=== PATIENT | male | born 1960 ===

== ENCOUNTER 2016-09-10 15:20 | Emergency (ER) | payer OTHER ==
[2016-09-10 15:47] VITALS: BMI 24.0
[2016-09-10] MEDS ORDERED: Sodium Chloride 0.9% 1,000 ML IV STA ×2 (15:52→17:44)
[2016-09-10 16:22] LABS: VENOUS BLOOD GAS BASE EXCESS 2.8 mmol/L (0.0-2.0); VENOUS BLOOD GAS PCO2 47 mmHg (40-60); VENOUS BLOOD GAS PO2 32 mm/Hg (30-55); VENOUS BLOOD PH 7.39 (7.32-7.43)
[2016-09-10 16:24] LABS: BASO % 0.7 % (0.0-2.0); EOS # 0.1 K/uL (0.0-0.7); EOS % 2.1 % (0.0-4.0); HEMOGLOBIN 14.9 g/dL (12.0-18.0); LYMPH # 1.7 K/uL (1.0-4.3); LYMPH % 27.4 % (20.0-40.0); MEAN CELL VOLUME 85.2 fl (80.0-94.0); MEAN CORPUSCULAR HEMOGLOBIN 28.7 pg (27.0-31.0); MEAN CORPUSCULAR HGB CONC 33.7 g/dL (33.0-37.0); MEAN PLATELET VOLUME 11.1 fl (7.2-11.7); MONO # 0.4 K/uL (0.0-0.8); MONO % 6.9 % (0.0-10.0); NEUT # 3.8 K/uL (1.8-7.0); NEUT % 62.9 % (50.0-75.0); NRBC % 0.1 % (0.0-0.0); RBC 5.18 Mil/uL (4.40-5.90); RED CELL DISTRIBUTION WIDTH 13.5 % (11.5-14.5); WHITE BLOOD COUNT 6.1 K/uL (4.8-10.8)
--- NOTE | 2016-09-10 16:30 | ED PDOC ---
HPI: Male Pain Time Seen by Provider: 09/10/16 15:43 Chief Complaint (Nursing): Abnormal Skin Integrity Chief Complaint (Provider): Penile Lesion History Per: Patient History/Exam Limitations: no limitations Onset/Duration Of Symptoms: Days (x 1 month) Current Symptoms Are (Timing): Still Present Additional Complaint(s): Taiwo Parish is a 56-year-old male who presents to the emergency department after being sent by his primary care physician for a complaint of a penile lesion, ongoing x 1 month. Patient reports scratching the lesion, causing it to increase in size and worsen. While visiting his primary care physician earlier today (09/10/16), he had an AccuCheck revealing hyperglycemia as he did not take his Metformin this morning. Also in the office he was given an injection of penicillin. Patient denies fever, shortness of breath, chest pain, abdominal pain, vomiting, diarrhea, penile pain, dysuria, and difficulty urinating. PMD: Vinny Mitchell MD Past Medical History Reviewed: Historical Data, Nursing Documentation, Vital Signs Vital Signs: Last Vital Signs Temp 98.2 F 09/10/16 15:52 Pulse 81 09/10/16 15:52 Resp 20 09/10/16 15:52 BP 140/80 09/10/16 15:52 Pulse Ox 98 09/10/16 15:52 - Medical History PMH: Depression, Gall Bladder Disease (CHOLECYSTECTOM Y 2013), HTN, Hypercholesterolemia, Sleep Apnea (C PAP) Denies: Chronic Kidney Disease - Surgical History Surgical History: Cholecystectomy, Endoscopy - Family History Family History: States: Unknown Family Hx - Social History Current smoker - smoking cessation education provided: No Alcohol: Social Drugs: Denies - Home Medications Home Medications: Ambulatory Orders Medication Instructions Recorded Aspirin 81 mg PO DAILY 05/28/14 Ropinirole Hydrochloride 0.5 mg PO HS 05/28/14 Simvastatin 80 mg PO DAILY 05/28/14 Atorvastatin [Lipitor] 80 mg PO DAILY 09/10/16 Gabapentin [Neurontin] 600 mg PO HS 09/10/16 Lisinopril [Zestril] 20 mg PO DAILY 09/10/16 Magnesium Oxide [Mag-Ox] 400 mg PO DAILY 09/10/16 MetFORMIN [glucOPHAGE] 1,000 mg PO BID 09/10/16 Metoprolol Succinate [Toprol XL] 25 mg PO DAILY 09/10/16 Rivastigmine 4.6 mg/24 hr [Exelon 1 patch TD DAILY 09/10/16 4.6 mg/24 hr Patch] Sulfamethoxazole/Trimethoprim 1 tab PO BID #20 tab 09/10/16 [Bactrim DS 800 mg-160 mg] amLODIPine [Norvasc] 10 mg PO DAILY 09/10/16 - Allergies Allergies/Adverse Reactions: Allergies Allergy/AdvReac Type Severity Reaction Status Date / Time No Known Allergies Allergy Unverified 08/24/13 13:46 Review of Systems ROS Statement: Except As Marked, All Systems Reviewed And Found Negative Constitutional: Negative for: Fever Cardiovascular: Negative for: Chest Pain Respiratory: Negative for: Shortness of Breath Gastrointestinal: Negative for: Vomiting, Abdominal Pain, Diarrhea Genitourinary Male: Positive for: Other (Penile lesion). Negative for: Dysuria (and difficulty urinating), Penile Pain Physical Exam - Reviewed Nursing Documentation Reviewed: Yes Vital Signs Reviewed: Yes - Physical Exam Appears: Positive for: Non-toxic, No Acute Distress Head Exam: Positive for: ATRAUMATIC, NORMAL INSPECTION, NORMOCEPHALIC Skin: Positive for: Normal Color, Warm, Dry Eye Exam: Positive for: EOMI, Normal appearance, PERRL Neck: Positive for: Normal, Painless ROM, Supple Cardiovascular/Chest: Positive for: Regular Rate, Rhythm. Negative for: Murmur Respiratory: Positive for: Normal Breath Sounds. 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 Uncircumcised and retracted, easily retractable. Edematous with superficial ulceration to the shaft. no tenderness, or vesicles noted. ). Negative for: scrotum tenderness (R), scrotum tenderness (L), testicular tenderness (R), testicular tenderness (L), urethral discharge Neurologic/Psych: Positive for: Alert, Oriented - Laboratory Results Result Diagrams: 09/10/16 16:16 09/10/16 16:16 - ECG O2 Sat by Pulse Oximetry: 98 (RA) Pulse Ox Interpretation: Normal - Physician Consult Information Time Consulting Physican Contacted: 17:10 Physician Contacted: Kenny Burton Outcome Of Conversation: Recommends Bactrim bid, outpatient follow-up in his office on 09/13 @ 3 PM in [place] office. Medical Decision Making Medical Decision Making: Time: 15:51 Initial impression: Balantophimosis, Hyperglycemia Initial plan: --Attempted to get a Urology consult, but the earliest available is Saturday --CMP --VBG shock panel --Urine dipstick --CBC --PTT --Prothrombin Time --Sodium chloride 1000 mL IV at 1000 mL/hr --Blood culture --Urine culture --Urinalysis --Reevaluation Case discussed with Dr. Mitchell, pt was administered Rocephin 250 mg IM in office, requesting consult with Dr. Burton. Scribe Attestation: Documented by Lulu Montalvo, acting as a scribe for Tabitha Cook MD. Provider Scribe Attestation: All medical record entries made by the Scribe were at my direction and personally dictated by me. I have reviewed the chart and agree that the record accurately reflects my personal performance of the history, physical exam, medical decision making, and the department course for this patient. I have also personally directed, reviewed, and agree with the discharge instructions and disposition. Disposition - Clinical Impression Clinical Impression: Balanoposthitis, Penile lesion - Disposition Referrals: Kenny Burton MD [Medical Doctor] - Disposition: Routine/Home Disposition Time: 18:50 Condition: STABLE Prescriptions: Sulfamethoxazole/Trimethoprim [Bactrim DS 800 mg-160 mg] 1 tab PO BID #20 tab Instructions: Jennifer (ED)
[2016-09-10 16:40] LABS: ALB/GLOB RATIO 1.3 (1.0-2.1); ALBUMIN 4.7 g/dL (3.5-5.0); ALT/SGPT 35 U/L (21-72); AST/SGOT 22 U/L (17-59); BLOOD UREA NITROGEN 14 mg/dl (9-20); CALCIUM 9.8 mg/dL (8.4-10.2); GFR AFRICAN-AMERICAN > 60; GFR NON-AFRICAN AMERICAN > 60
[2016-09-10 16:51] LABS: PARTIAL THROMBOPLASTIN TIME 30.1 Seconds (25.6-37.1); PROTHROMBIN TIME 10.8 Seconds (9.8-13.1)
[2016-09-10 16:58] LABS: URINE BACTERIA RARE (<OCC); URINE BILIRUBIN NEGATIVE (NEGATIVE); URINE BLOOD NEGATIVE (NEGATIVE); URINE CLARITY CLEAR (Clear); URINE COLOR YELLOW (YELLOW); URINE GLUCOSE (UA) >=500 mg/dL (Normal); URINE LEUKOCYTE ESTERASE NEG Leu/uL (Negative); URINE NITRATE NEGATIVE (NEGATIVE); URINE PROTEIN 30 mg/dL (NEGATIVE); URINE UROBILINOGEN 0.2-1.0 mg/dL (0.2-1.0)
[2016-09-10] MEDS ORDERED: Insulin Regular 100 units/ml IV STA (17:44)
[2016-09-10 17:45] VITALS: PULSE 78
[2016-09-10] MEDS ORDERED: Insulin Regular 100 units/ml ONE (17:49)
[2016-09-10 18:57] VITALS: BP 128/78; RESP 19; TEMP 97.6; O2SAT 98
== END 2016-09-10 18:56 | disposition home or self-care (01) ==
LOC: H.ER 15:20
DX: N47.6 Balanoposthitis (principal); E78.00 Pure hypercholesterolemia, unspecified; Z79.82 Long term (current) use of aspirin; Z79.84 Long term (current) use of oral hypoglycemic drugs; Z86.59 Personal history of other mental and behavioral disorders

== ENCOUNTER 2017-10-04 18:40 | Inpatient (IN) | payer OTHER ==
[2017-10-04 18:40] VITALS: BMI 24.0
[2017-10-04] MEDS ORDERED: Sodium Chloride 0.9% 1,000 ML IV STA ×2 (19:26→20:55)
--- NOTE | 2017-10-04 19:30 | ED PDOC ---
Syncope/Near Syncope/Dizziness Time Seen by Provider: 10/04/17 19:09 Chief Complaint (Nursing): Dizziness/Lightheaded Chief Complaint (Provider): Abdominal Pain History Per: Patient History/Exam Limitations: no limitations Onset/Duration Of Symptoms: Days (x7) Current Symptoms Are (Timing): Still Present Additional Complaint(s): 57 y/o male with a PMHx of HTM, DM, and CAD presents to the ED complaining of fever, diarrhea and abdominal pain, onset one week ago. Patient reports pain started with continuous, water, non-bloody diarrhea and cramping. Patient also complains of on and off fever starting three days ago associated with generalized weakness, fatigue and dizziness when walking. Patient reports of taking augmentin for tooth infection last week. Denies headache, chest pain, rectal bleeding, urinary problems, travel and sick contacts. PMD: Vinny Mitchell Past Medical History Reviewed: Historical Data, Nursing Documentation, Vital Signs Vital Signs: Last Vital Signs Temp 98.1 F 10/04/17 18:48 Pulse 105 H 10/04/17 18:48 Resp 18 10/04/17 18:48 BP 111/76 10/04/17 18:48 Pulse Ox 99 10/04/17 18:48 - Medical History PMH: CAD, Depression, Diabetes, Gall Bladder Disease (CHOLECYSTECTOM Y 2013), HTN, Hypercholesterolemia, Sleep Apnea (C PAP) Denies: Chronic Kidney Disease - Surgical History Surgical History: CABG, Cholecystectomy, Endoscopy - Family History Family History: States: Unknown Family Hx - Home Medications Home Medications: Ambulatory Orders Medication Instructions Recorded Aspirin 81 mg PO DAILY 05/28/14 Ropinirole Hydrochloride 0.5 mg PO HS 05/28/14 Simvastatin 80 mg PO DAILY 05/28/14 Lisinopril [Zestril] 20 mg PO DAILY 09/10/16 MetFORMIN [glucOPHAGE] 1,000 mg PO BID 09/10/16 Metoprolol Succinate XL [Toprol XL] 25 mg PO DAILY 09/10/16 Rivastigmine 4.6 mg/24 hr [Exelon 1 patch TD DAILY 09/10/16 4.6 mg/24 hr Patch] amLODIPine [Norvasc] 10 mg PO DAILY 09/10/16 - Allergies Allergies/Adverse Reactions: Allergies Allergy/AdvReac Type Severity Reaction Status Date / Time No Known Allergies Allergy Verified 10/04/17 18:48 Review of Systems ROS Statement: Except As Marked, All Systems Reviewed And Found Negative Constitutional: Positive for: Fever, Weakness, Other (Fatigue) Cardiovascular: Negative for: Chest Pain Gastrointestinal: Positive for: Abdominal Pain, Diarrhea. Negative for: Vomiting, Rectal Pain Genitourinary Male: Negative for: Dysuria, Frequency, Hematuria Neurological: Positive for: Dizziness (When walking). Negative for: Headache Physical Exam - Reviewed Nursing Documentation Reviewed: Yes Vital Signs Reviewed: Yes - Physical Exam Appears: Positive for: Non-toxic, No Acute Distress Head Exam: Positive for: ATRAUMATIC, NORMOCEPHALIC Skin: Positive for: Normal Color, Warm, Dry Eye Exam: Positive for: Normal appearance, EOMI, PERRL ENT: Positive for: Normal ENT Inspection, Other (Dry Mucous Membranes) Neck: Positive for: Normal, Painless ROM Cardiovascular/Chest: Positive for: Regular Rate, Rhythm, Tachycardia. Negative for: Murmur Respiratory: Positive for: Normal Breath Sounds. Negative for: Respiratory Distress Gastrointestinal/Abdominal: Positive for: Normal Exam, Soft. Negative for: Tenderness Back: Positive for: Normal Inspection. Negative for: L CVA Tenderness, R CVA Tenderness Extremity: Positive for: Normal ROM. Negative for: Deformity, Swelling (leg) Neurologic/Psych: Positive for: Alert, Oriented. Negative for: Motor/Sensory Deficits - Laboratory Results Result Diagrams: 10/04/17 20:00 10/04/17 20:00 - ECG O2 Sat by Pulse Oximetry: 99 (RA) Pulse Ox Interpretation: Normal - Critical Care Total Time (In Min): 120 Documented Critical Care: Time excludes all time spent performint seperately billable procedures Medical Decision Making Medical Decision Making: Time: 1926 Initial Impression: Fever, diarrhea and abdominal pain Differentials include but not limited to Acute Colitis, Gastroenteritis, Diverticulitis and other abdominal infection considered but not listed. Initial Plan: -- VBG -- CT Abd/Pelvis IV Contrast -- EKG -- CMP -- Lipase -- ED Urine Dipstick -- CBC with differentials -- Sodium Chloride IV 1000 mls/hr -- Zofran Inj 4 mg IV -- Blood Culture -- Urine Culture Time: 2008 Plan: -- VBG Time: 2027 Plan: -- ABG Time: 2129 Final Impression: Acute Colitis, Sepsis, Septic Shock and C.Diff -- Glucose level and Lact Acid level results are very elevated. -- Code Sepsis called -- Patient developed fever and met criteria for SARS. Thus a Code Sepsis was called. Provider order IV fluids according to protocol. -- Discussed case with Dr. Tucker to admit to ICU for septic shock. Then called Dr. Mitchell for admission under his service who requested Dr. Tena for consultation. Time: 2134 -- Patient given Zosyn and and Flagyl as per Dr. Tena's recommendation. Time: 2145 CT ABD/PELVIS RESULTS FINDINGS: Lung bases: Unremarkable. No mass. No consolidation. ABDOMEN: Liver: 1.5 cm hyperdense focus in the hepatic dome cannot be accurately placed within them this exam. Gallbladder and bile ducts: Cholecystectomy No ductal dilation. Pancreas: Unremarkable. No ductal dilation. Spleen: Unremarkable. No splenomegaly. Adrenals: Unremarkable. No mass. Kidneys and ureters: Unremarkable. No solid mass. No hydronephrosis. Stomach and bowel: Apparent thickening of the entire colon, indicative of infectious/inflammatory colitis versus less likely ischemic colitis. Correlate clinically. PELVIS: Appendix: No findings to suggest acute appendicitis. Bladder: Unremarkable. Reproductive: Enlarged prostate. ABDOMEN and PELVIS: Intraperitoneal space: Unremarkable. No free air. No significant fluid collection. Bones/joints: No acute fracture. No dislocation. Soft tissues: Unremarkable. Vasculature: Unremarkable. No abdominal aortic aneurysm. Lymph nodes: Unremarkable. No enlarged lymph nodes. IMPRESSION: Apparent thickening of the entire colon, indicative of infectious/inflammatory colitis versus less likely ischemic colitis. Correlate clinically. Thank you for allowing us to participate in the care of your patient. Dictated and Authenticated by: Azul Beard MD 10/04/2017 9:46 PM Eastern Time ([place] & [place]) Scribe Attestation: Documented by Al Tejada acting as a scribe for Dr. Norma Chávez MD. Provider Scribe Attestation: All medical record entries made by the Scribe were at my direction and personally dictated by me. I have reviewed the chart and agree that the record accurately reflects my personal performance of the history, physical exam, medical decision making, and the department course for this patient. I have also personally directed, reviewed, and agree with the discharge instructions and disposition. Disposition - Clinical Impression Clinical Impression: Sepsis, Colitis, Septic shock, Hyperglycemia due to type 2 diabetes mellitus - Patient ED Disposition Is Patient to be Admitted: Yes Discussed With : Vinny Mitchell Doctor Will See Patient In The: Hospital Counseled Patient/Family Regarding: Studies Performed, Diagnosis - Disposition Disposition Time: 21:30 Condition: CRITICAL - Pt Status Changed To: Hospital Disposition Of: Inpatient - Admit Certification Admit to Inpatient:: After my assessment, the patient will require hospitalization for at least two midnights. This is because of the severity of symptoms shown, intensity of services needed, and/or the medical risk in this patient being treated as an outpatient. - POA Present On Arrival: Poor Glycemic Control
[2017-10-04 20:16] LABS: BASO % 0.1 % (0.0-2.0); HEMOGLOBIN 15.7 g/dL (12.0-18.0); LYMPH # 0.5 K/uL (1.0-4.3); LYMPH % 6.3 % (20.0-40.0); MEAN CELL VOLUME 85.7 fl (80.0-94.0); MEAN CORPUSCULAR HEMOGLOBIN 29.1 pg (27.0-31.0); MEAN CORPUSCULAR HGB CONC 33.9 g/dL (33.0-37.0); MEAN PLATELET VOLUME 11.2 fl (7.2-11.7); MONO # 0.6 K/uL (0.0-0.8); MONO % 7.9 % (0.0-10.0); NEUT # 6.6 K/uL (1.8-7.0); NEUT % 85.7 % (50.0-75.0); PLATELET COUNT 175 K/uL (130-400); RED CELL DISTRIBUTION WIDTH 13.9 % (11.5-14.5); WHITE BLOOD COUNT 7.7 K/uL (4.8-10.8)
[2017-10-04 20:18] LABS: VENOUS BLOOD GAS BASE EXCESS -3.1 mmol/L (0.0-2.0); VENOUS BLOOD GAS PCO2 35 mmHg (40-60); VENOUS BLOOD GAS PO2 32 mm/Hg (30-55); VENOUS BLOOD PH 7.39 (7.32-7.43)
[2017-10-04 20:35] LABS: ALB/GLOB RATIO 1.5 (1.0-2.1); ALBUMIN 4.3 g/dL (3.5-5.0); ALT/SGPT 32 U/L (21-72); AST/SGOT 31 U/L (17-59); BLOOD UREA NITROGEN 23 mg/dl (9-20); CALCIUM 9.5 mg/dL (8.4-10.2); GFR AFRICAN-AMERICAN > 60; GFR NON-AFRICAN AMERICAN 52; LIPASE 31 U/L (23-300)
[2017-10-04] MEDS ORDERED: Iohexol 300 100 ML IJ ONE (20:37)
[2017-10-04 20:40] LABS: ABG ALLEN TEST YES; ARTERIAL BLOOD GAS HCO3 21.3 mmol/L (21-28); ARTERIAL BLOOD GAS HEMOGLOBIN 14.1 g/dL (11.7-17.4); ARTERIAL BLOOD GAS O2 CAPACITY 18.8 mL/dL (16-24); ARTERIAL BLOOD GAS PCO2 30 mm/Hg (35-45); ARTERIAL BLOOD GAS PH 7.41 (7.35-7.45); ARTERIAL BLOOD GAS PO2 62 mm/Hg (80-100); ARTERIAL BLOOD GAS TCO2 19.9 mmol/L (22-28)
[2017-10-04] MEDS ORDERED: Iodixanol 320 MG/ML 100 ML BOTTLE IV ONE (20:48)
[2017-10-04] MEDS ORDERED: Insulin Regular 100 units/ml IV STA (20:54)
[2017-10-04] MEDS ORDERED: Piperacillin/Tazobact 3.375 GM in Sodium Chloride 0.9% 100 ML IVPB STA (21:35)
[2017-10-04] MEDS ORDERED: Insulin Regular 100 units/ml ONE (21:36)
[2017-10-04 22:00] LABS: BANDS 8 % (0-2); LYMPHOCYTE 10 % (20-50); MONOCYTE 8 % (0-10); NEUTROPHIL 74 % (42-75); PLATELET ESTIMATE NORMAL (NORMAL); TOTAL CELLS COUNTED 100
[2017-10-04 22:01] LABS: HYPOCHROMIC SLIGHT; MICROCYTOSIS SLIGHT
--- NOTE | 2017-10-04 22:02 | CP.PCM.CON ---
History of Present Illness - History of Present Illness History of Present Illness: PMD: Vinny Mitchell Reason for Consult: Critical Care Management Chief Complaint: Fever/diarrhea/abdominal pain The Patient was seen and examined in the ED HPI: The hx was obtained from the patient and his family. He is a 57 years old male with hx of HTN, DM II, and restless leg syndrome who 3 weeks ago was given Amoxicillin for abdominal pains. He was then given Augmentin about 10 days ago as prophylaxis for tooth extraction which was done on the 10/02/17. He comes to the ED with one week of loose diarrhea with blood associated with cramping geraldine- umbilical abdominal pains and lightheadedness on being erect. Also generalized weakness. The fever started 3 days prior to this admission. No headaches, chest pains dysuria. 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 absent: Blurred Vision, Diplopia, Photophobia Ears: absent: Decreased Hearing, Tinnitus Nose/Mouth/Throat: absent: Epistaxis, Nasal Congestion, Sinus Pain, Sinus Pressure - Cardiovascular Cardiovascular: absent: Chest Pain, Dyspnea, Edema - Respiratory Respiratory: absent: Cough, Dyspnea, Wheezing, Chest Congestion - Gastrointestinal Gastrointestinal: Abdominal Pain, Cramping, Diarrhea, Hematochezia. absent: Nausea, Vomiting - Genitourinary Genitourinary: absent: Dysuria, Flank Pain, Urinary Frequency - Musculoskeletal Musculoskeletal: Arthralgias. absent: Back Pain, Muscle Cramps - Integumentary Integumentary: absent: Pruritus, Rash, Skin Ulcer, Sores, Striae, Swelling - Neurological Neurological: Dizziness, Restless Legs, Weakness. absent: Confusion, Focal Weakness - Psychiatric Psychiatric: Depression. absent: Anxiety, Panic Attacks - Endocrine Endocrine: absent: Palpitations, Polydipsia, Polyphagia, Polyuria - Hematologic/Lymphatic Hematologic: absent: Easy Bleeding, Easy Bruising Past Patient History - Past Medical History & Family History Past Medical History?: Yes - Past Social History Smoking Status: Never Smoked Chewing Tobacco Use: No Cigar Use: No Alcohol: Social Drugs: Denies Home Situation {Lives}: With Family - CARDIAC Hx Hypercholesterolemia: Yes Hx Hypertension: Yes - PULMONARY Hx Sleep Apnea: Yes (C PAP) - NEUROLOGICAL Hx Neurological Disorder: Yes Hx Dizziness: Yes (ONLY WHEN GETS UP ABRUPTLY) - HEENT Hx HEENT Problems: No - RENAL Hx Chronic Kidney Disease: No - ENDOCRINE/METABOLIC Hx Endocrine Disorders: Yes Hx Diabetes Mellitus Type 2: Yes - HEMATOLOGICAL/ONCOLOGICAL Hx Blood Disorders: No - INTEGUMENTARY Hx Dermatological Problems: No - MUSCULOSKELETAL/RHEUMATOLOGICAL Hx Musculoskeletal Disorders: Yes Hx Back Pain: Yes Hx Osteoarthritis: Yes (SPINE) Other/Comment: CARPAL TUNNEL left - GASTROINTESTINAL Hx Gall Bladder Disease: Yes (CHOLECYSTECTOM Y 2013) - GENITOURINARY/GYNECOLOGICAL Hx Genitourinary Disorders: No - PSYCHIATRIC Hx Depression: Yes - SURGICAL HISTORY Hx Cholecystectomy: Yes Hx Coronary Artery Bypass Graft: Yes - ANESTHESIA Hx Anesthesia: Yes Hx Anesthesia Reactions: No Hx Malignant Hyperthermia: No Meds Allergies/Adverse Reactions: Allergies Allergy/AdvReac Type Severity Reaction Status Date / Time No Known Allergies Allergy Verified 10/04/17 18:48 - Medications Medications: Current Medications Piperacillin Sod/Tazobactam (Sod 3.375 gm/ Sodium Chloride) 100 mls @ 100 mls/ hr IVPB STAT STA PRN Reason: Protocol Stop: 10/04/17 22:34 Metronidazole (Flagyl 500mg/100ml Ns) 100 mls @ 100 mls/hr IVPB Q8 JOSHUA PRN Reason: Protocol Physical Exam - Constitutional Appears: Toxic - Head Exam Head Exam: ATRAUMATIC, NORMAL INSPECTION, NORMOCEPHALIC - Eye Exam Eye Exam: EOMI, Normal appearance Pupil Exam: NORMAL ACCOMODATION, PERRL - ENT Exam ENT Exam: Mucous Membranes Dry, Normal Exam, Normal External Ear Exam - Neck Exam Neck exam: Positive for: Full Rom, Normal Inspection. Negative for: Lymphadenopathy, Tenderness - Respiratory Exam Respiratory Exam: Clear to Auscultation Bilateral. absent: Rales, Rhonchi, Wheezes - Cardiovascular Exam Cardiovascular Exam: REGULAR RHYTHM, RRR, +S1, +S2. absent: Gallop, JVD - GI/Abdominal Exam Additional comments: Full, Soft, non-tender, no guarding nor rebound tenderness - Rectal Exam Rectal Exam: Deferred - Extremities Exam Extremities exam: Positive for: full ROM, normal inspection. Negative for: calf tenderness, pedal edema - Back Exam Back exam: NORMAL INSPECTION. absent: CVA tenderness (L), CVA tenderness (R) - Neurological Exam Neurological exam: Alert, CN II-XII Intact, Oriented x3, Reflexes Normal - Psychiatric Exam Psychiatric exam: Normal Affect, Normal Mood - Skin Skin Exam: Dry, Intact, Normal Color, Warm Results - Vital Signs Recent Vital Signs: Last Vital Signs Temp 102.1 F H 10/04/17 21:37 Pulse 101 H 10/04/17 21:39 Resp 18 10/04/17 20:33 BP 121/68 10/04/17 21:39 Pulse Ox 99 10/04/17 21:55 - Labs Result Diagrams: 10/04/17 20:00 10/04/17 20:00 Labs: Laboratory Results - last 24 hr 10/04/17 10/04/17 10/04/17 20:00 20:00 20:09 WBC 7.7 RBC 5.40 Hgb 15.7 Hct 46.3 MCV 85.7 MCH 29.1 MCHC 33.9 RDW 13.9 Plt Count 175 MPV 11.2 Neut % (Auto) 85.7 H Lymph % (Auto) 6.3 L [place] % (Auto) 7.9 Eos % (Auto) 0.0 Baso % (Auto) 0.1 Neut # (Auto) 6.6 Lymph # (Auto) 0.5 L [place] # (Auto) 0.6 Eos # (Auto) 0.0 Baso # (Auto) 0.0 Neutrophils % (Manual) 74 Band Neutrophils % 8 H Lymphocytes % (Manual) 10 L Monocytes % (Manual) 8 Platelet Estimate Normal Hypochromasia (manual) Slight Microcytosis (manual) Slight pCO2 pO2 32 HCO3 ABG pH ABG Total CO2 ABG O2 Saturation ABG O2 Content ABG Base Excess ABG Hemoglobin ABG Carboxyhemoglobin POC ABG HHb (Measured) ABG Methemoglobin ABG O2 Capacity Shaquille Test VBG pH 7.39 VBG pCO2 35 L VBG HCO3 21.5 VBG Total CO2 22.3 VBG O2 Sat (Calc) 67.3 H VBG Base Excess -3.1 L VBG Potassium 4.2 A-a O2 Difference Hgb O2 Saturation Glucose 606 H* D Lactate 4.7 H* Vent Mode FiO2 21.0 Crit Value Called To dany Chávez md Crit Value Called By Sage durán Crit Value Read Back Y Blood Gas Notified Time 2017 Sodium 132 130.0 L Potassium 4.4 Chloride 94 L 92.0 L Carbon Dioxide 20 L Anion Gap 22 H BUN 23 H Creatinine 1.4 Est GFR ( Amer) > 60 Est GFR (Non-Af Amer) 52 Random Glucose 567 H* D Calcium 9.5 Total Bilirubin 1.5 H AST 31 ALT 32 Alkaline Phosphatase 107 Total Protein 7.2 Albumin 4.3 Globulin 2.9 Albumin/Globulin Ratio 1.5 Lipase 31 Venous Blood Potassium 4.2 10/04/17 20:28 WBC RBC Hgb Hct MCV MCH MCHC RDW Plt Count MPV Neut % (Auto) Lymph % (Auto) [place] % (Auto) Eos % (Auto) Baso % (Auto) Neut # (Auto) Lymph # (Auto) [place] # (Auto) Eos # (Auto) Baso # (Auto) Neutrophils % (Manual) Band Neutrophils % Lymphocytes % (Manual) Monocytes % (Manual) Platelet Estimate Hypochromasia (manual) Microcytosis (manual) pCO2 30 L pO2 62 L HCO3 21.3 ABG pH 7.41 ABG Total CO2 19.9 L ABG O2 Saturation 96.0 ABG O2 Content 18.0 ABG Base Excess -4.4 L ABG Hemoglobin 14.1 ABG Carboxyhemoglobin 2.7 H POC ABG HHb (Measured) 3.8 ABG Methemoglobin 2.9 ABG O2 Capacity 18.8 Shaquille Test Yes VBG pH VBG pCO2 VBG HCO3 VBG Total CO2 VBG O2 Sat (Calc) VBG Base Excess VBG Potassium A-a O2 Difference 50.0 Hgb O2 Saturation 90.6 L Glucose Lactate Vent Mode Room air FiO2 21.0 Crit Value Called To Crit Value Called By Crit Value Read Back Blood Gas Notified Time Sodium Potassium Chloride Carbon Dioxide Anion Gap BUN Creatinine Est GFR ( Amer) Est GFR (Non-Af Amer) Random Glucose Calcium Total Bilirubin AST ALT Alkaline Phosphatase Total Protein Albumin Globulin Albumin/Globulin Ratio Lipase Venous Blood Potassium - Imaging and Cardiology CT scan - abdomen Status: Report reviewed by me Additional comment: CT Abdomen and Pelvis With Intravenous Contrast CLINICAL HISTORY: FINDINGS: Lung bases: Unremarkable. No mass. No consolidation. ABDOMEN: Liver: 1.5 cm hyperdense focus in the hepatic dome cannot be accurately placed within them this exam. Gallbladder and bile ducts: Cholecystectomy No ductal dilation. Pancreas: Unremarkable. No ductal dilation. Spleen: Unremarkable. No splenomegaly. Adrenals: Unremarkable. No mass. Kidneys and ureters: Unremarkable. No solid mass. No hydronephrosis. Stomach and bowel: Apparent thickening of the entire colon, indicative of infectious/inflammatory colitis versus less likely ischemic colitis. Correlate clinically. PELVIS: Appendix: No findings to suggest acute appendicitis. Bladder: Unremarkable. Reproductive: Enlarged prostate. ABDOMEN and PELVIS: Intraperitoneal space: Unremarkable. No free air. No significant fluid collection. Bones/joints: No acute fracture. No dislocation. Soft tissues: Unremarkable. Vasculature: Unremarkable. No abdominal aortic aneurysm. Lymph nodes: Unremarkable. No enlarged lymph nodes. IMPRESSION: Apparent thickening of the entire colon, indicative of infectious/inflammatory colitis versus less likely ischemic colitis. Correlate clinically. Chest x-ray Status: Image reviewed by me Additional comment: No Infiltrate Assessment & Plan - Assessment and Plan (Free Text) Assessment: #. Acute colitis #. Septic Shock #. Azotemia and Dehydrartion #. DM II with hyperglycemia #. HTN #. Restless leg Syndrome #. Sleep Apnea Plan: 57 years old male with hx of HTN, DM II, and restless leg syndrome who was then given Augmentin about 10 days ago as prophylaxis for tooth extraction which was done on the 10/02/17. He comes to the ED with one week of loose diarrhea with blood associated with cramping geraldine-umbilical abdominal pains, lightheadedness and generalized weakness. Fever started 3 days prior to this admission. #. Acute colitis r/o Ulcerative colitis vs infectious colitis, ischemic colitis less likely - consult Dr Shaw GI - Stool for C Diff - Stool culture - Hemoglobin - Zosyn - Flagyl #. Septic Shock - Consult Dr Tena ID - Blood Cultures - follow Lactate - Antibiotics - IV Fluids 2Liter of NS and 1.8 Liters of Ringers lactate given in ED - continue with IV Fluids NS at 200mls/hr #. Azotemia and Dehydrartion - IV Fluids - Renal labs #. DM II with hyperglycemia - IV fluids - Regular Insulin sliding scale according to accucheck - Metformin - HbAic #. HTN - Restart home mediation of Metoprolol/Norvasc/Zestril with BP parameters - Follow blood pressures #. Sleep Apnea - CPAP #. Stress Ulcer Prophylaxis with Pantoprazole #. DVT Prophylaxis with SCD #. Code Status: Full - Date & Time Date: 10/04/17 Time: 22:02
[2017-10-04] MEDS ORDERED: metroNIDAZOLE 500mg/100ml NS 100 ML IVPB STA (22:07)
[2017-10-04] MEDS ORDERED: metroNIDAZOLE 500mg/100ml NS 100 ML IVPB ONE (22:12)
[2017-10-04] MEDS ORDERED: Piperacillin/Tazobact 3.375 gm Inj IVPB ONE (22:12)
[2017-10-04 23:15] LABS: VENOUS BLOOD GAS BASE EXCESS -3.3 mmol/L (0.0-2.0); VENOUS BLOOD GAS PCO2 36 mmHg (40-60); VENOUS BLOOD GAS PO2 20 mm/Hg (30-55); VENOUS BLOOD PH 7.38 (7.32-7.43)
[2017-10-05] MEDS ORDERED: metroNIDAZOLE 500mg/100ml NS 100 ML IVPB SCH (01:00)
[2017-10-05] MEDS: Insulin Regular 100 units/ml SC SCH ×6 (04:47→20:45)
[2017-10-05] MEDS: Piperacillin/Tazobact 3.375 GM in Sodium Chloride 0.9% 100 ML IVPB SCH ×2 (05:06→10:03)
[2017-10-05] MEDS: Sodium Chloride 0.9% 1,000 ML IV SCH ×4 (05:06→21:25)
[2017-10-05 06:09] LABS: BASO % 0.4 % (0.0-2.0); EOS % 0.1 % (0.0-4.0); HEMOGLOBIN 13.5 g/dL (12.0-18.0); LYMPH # 0.8 K/uL (1.0-4.3); LYMPH % 20.7 % (20.0-40.0); MEAN CELL VOLUME 85.8 fl (80.0-94.0); MEAN CORPUSCULAR HEMOGLOBIN 29.2 pg (27.0-31.0); MEAN PLATELET VOLUME 11.3 fl (7.2-11.7); MONO # 0.5 K/uL (0.0-0.8); NEUT # 2.4 K/uL (1.8-7.0); NEUT % 64.8 % (50.0-75.0); NRBC % 0.1 % (0.0-0.0); RBC 4.61 Mil/uL (4.40-5.90); RED CELL DISTRIBUTION WIDTH 13.4 % (11.5-14.5); WHITE BLOOD COUNT 3.8 K/uL (4.8-10.8)
[2017-10-05 06:30] LABS: BLOOD UREA NITROGEN 17 mg/dl (9-20); CALCIUM 7.9 mg/dL (8.4-10.2); GFR AFRICAN-AMERICAN > 60; GFR NON-AFRICAN AMERICAN > 60
--- NOTE | 2017-10-05 07:03 | RAD ---
Date of service: 10/04/2017 HISTORY: sepsis COMPARISON: No prior. FINDINGS: LUNGS: No active pulmonary disease. PLEURA: No significant pleural effusion identified, no pneumothorax apparent. CARDIOVASCULAR: Normal. OSSEOUS STRUCTURES: No significant abnormalities. VISUALIZED UPPER ABDOMEN: Normal. OTHER FINDINGS: Status post CABG per IMPRESSION: No active disease.
--- NOTE | 2017-10-05 07:52 | CARD ---
APPROVED REPORT Date of service: 10/04/2017 <Conclusion> Sinus tachycardia Incomplete right bundle branch block T wave abnormality, consider inferior ischemia Abnormal ECG
--- NOTE | 2017-10-05 08:49 | CT ---
Date of service: 10/04/2017 PROCEDURE: CT Abdomen and Pelvis without intravenous contrast HISTORY: diarrhea abd pain fever COMPARISON: None. TECHNIQUE: Technique. Contrast dose: Radiation dose: Total exam DLP = mGy-cm. This CT exam was performed using one or more of the following dose reduction techniques: Automated exposure control, adjustment of the mA and/or kV according to patient size, and/or use of iterative reconstruction technique. FINDINGS: LOWER THORAX: Unremarkable. LIVER: Unremarkable. No gross lesion or ductal dilatation. GALLBLADDER AND BILE DUCTS: Unremarkable. PANCREAS: Unremarkable. No gross lesion or ductal dilatation. SPLEEN: Unremarkable. ADRENALS: Unremarkable. No mass. KIDNEYS AND URETERS: Unremarkable. No hydronephrosis. No solid mass. VASCULATURE: Unremarkable. No aortic aneurysm. BOWEL: Thickening of the colon possibly representing an infectious/ inflammatory colitis. This is more pronounced in the descending and sigmoid colon. APPENDIX: Unremarkable. Normal appendix. PERITONEUM: Unremarkable. No free fluid. No free air. LYMPH NODES: Unremarkable. No enlarged lymph nodes. BLADDER: Unremarkable. REPRODUCTIVE: Unremarkable. BONES: No acute fracture. OTHER FINDINGS: None. IMPRESSION: Thickening of the colon possibly representing an infectious/ inflammatory colitis. This is more pronounced in the descending and sigmoid colon.
[2017-10-05] MEDS: Pantoprazole 40 mg EC Tab PO SCH (08:52)
[2017-10-05] MEDS: Metoprolol Succinate 25 mg XL Tab PO SCH (08:53)
[2017-10-05] MEDS: metroNIDAZOLE 500mg/100ml NS 100 ML IVPB SCH ×2 (08:59→17:06)
--- NOTE | 2017-10-05 11:43 | CP.PCM.HP ---
History of Present Illness - History of Present Illness History of Present Illness: 57 y/o gentleman with hx of CAD, DM2, HTN presented in ER with presyncope, severe weakness and severe diarrhea no melena, no hematochezia x 2 days. He presented with severe dehydration, tachycardia, BG >600, persistent fever with Tmax 103.5, leukopenia, increased anion GAP and BUN. He was seen in my office on 08/12 with mild symptoms of gastroenteritis. He was started on PO Cipro and Flagyl. He was advised to have a f/u with a GI. As per the patient he responded well at the therapy at that time so he defend the f/u with GI and colonoscopy. Present on Admission - Present on Admission Any Indicators Present on Admission: No Review of Systems - Constitutional Constitutional: Fatigue, Malaise, Weight Loss, Weakness - EENT Nose/Mouth/Throat: As Per HPI - Cardiovascular Cardiovascular: As Per HPI - Respiratory Respiratory: As Per HPI - Gastrointestinal Gastrointestinal: Cramping, Diarrhea, Dyspepsia - Musculoskeletal Musculoskeletal: As Per HPI - Integumentary Integumentary: As Per HPI - Neurological Neurological: As Per HPI - Psychiatric Psychiatric: As Per HPI Past Patient History - Past Medical History & Family History Past Medical History?: Yes - Past Social History Smoking Status: Never Smoked Chewing Tobacco Use: No Cigar Use: No Alcohol: Social Drugs: Denies Home Situation {Lives}: With Family - CARDIAC Hx Hypercholesterolemia: Yes Hx Hypertension: Yes - PULMONARY Hx Sleep Apnea: Yes (C PAP) - NEUROLOGICAL Hx Neurological Disorder: Yes Hx Dizziness: Yes (ONLY WHEN GETS UP ABRUPTLY) - HEENT Hx HEENT Problems: No - RENAL Hx Chronic Kidney Disease: No - ENDOCRINE/METABOLIC Hx Endocrine Disorders: Yes Hx Diabetes Mellitus Type 2: Yes - HEMATOLOGICAL/ONCOLOGICAL Hx Blood Disorders: No - INTEGUMENTARY Hx Dermatological Problems: No - MUSCULOSKELETAL/RHEUMATOLOGICAL Hx Musculoskeletal Disorders: Yes Hx Back Pain: Yes Hx Osteoarthritis: Yes (SPINE) Other/Comment: CARPAL TUNNEL left - GASTROINTESTINAL Hx Gall Bladder Disease: Yes (CHOLECYSTECTOM Y 2013) - GENITOURINARY/GYNECOLOGICAL Hx Genitourinary Disorders: No - PSYCHIATRIC Hx Depression: Yes - SURGICAL HISTORY Hx Cholecystectomy: Yes Hx Coronary Artery Bypass Graft: Yes - ANESTHESIA Hx Anesthesia: Yes Hx Anesthesia Reactions: No Hx Malignant Hyperthermia: No Meds Allergies/Adverse Reactions: Allergies Allergy/AdvReac Type Severity Reaction Status Date / Time No Known Allergies Allergy Verified 10/04/17 18:48 Physical Exam - Constitutional Appears: Chronically Ill - Head Exam Head Exam: ATRAUMATIC, NORMAL INSPECTION, NORMOCEPHALIC - Eye Exam Eye Exam: Normal appearance - ENT Exam ENT Exam: Mucous Membranes Dry - Neck Exam Neck exam: Positive for: Full Rom - Respiratory Exam Respiratory Exam: Clear to Auscultation Bilateral - Cardiovascular Exam Cardiovascular Exam: Tachycardia, REGULAR RHYTHM, +S1, +S2 - GI/Abdominal Exam GI & Abdominal Exam: Hyperactive Bowel Sounds - Extremities Exam Extremities exam: Positive for: normal inspection - Neurological Exam Neurological exam: Alert, CN II-XII Intact, Oriented x3 - Psychiatric Exam Psychiatric exam: Normal Affect - Skin Skin Exam: Normal Color Results - Vital Signs Recent Vital Signs: Last Vital Signs Temp 102.8 F H 10/05/17 08:00 Pulse 94 H 10/05/17 10:00 Resp 21 10/05/17 10:00 BP 120/64 10/05/17 10:00 Pulse Ox 100 10/05/17 10:00 - Labs Result Diagrams: 10/05/17 04:12 10/05/17 04:12 Labs: Laboratory Results - last 24 hr 10/04/17 10/04/17 10/04/17 20:00 20:00 20:09 WBC 7.7 RBC 5.40 Hgb 15.7 Hct 46.3 MCV 85.7 MCH 29.1 MCHC 33.9 RDW 13.9 Plt Count 175 MPV 11.2 Neut % (Auto) 85.7 H Lymph % (Auto) 6.3 L [place] % (Auto) 7.9 Eos % (Auto) 0.0 Baso % (Auto) 0.1 Neut # (Auto) 6.6 Lymph # (Auto) 0.5 L [place] # (Auto) 0.6 Eos # (Auto) 0.0 Baso # (Auto) 0.0 Neutrophils % (Manual) 74 Band Neutrophils % 8 H Lymphocytes % (Manual) 10 L Monocytes % (Manual) 8 Platelet Estimate Normal Hypochromasia (manual) Slight Microcytosis (manual) Slight pCO2 pO2 32 HCO3 ABG pH ABG Total CO2 ABG O2 Saturation ABG O2 Content ABG Base Excess ABG Hemoglobin ABG Carboxyhemoglobin POC ABG HHb (Measured) ABG Methemoglobin ABG O2 Capacity Shaquille Test VBG pH 7.39 VBG pCO2 35 L VBG HCO3 21.5 VBG Total CO2 22.3 VBG O2 Sat (Calc) 67.3 H VBG Base Excess -3.1 L VBG Potassium 4.2 A-a O2 Difference Hgb O2 Saturation Glucose 606 H* D Lactate 4.7 H* Vent Mode FiO2 21.0 Crit Value Called To dany Chávez md Crit Value Called By Sage udrán Crit Value Read Back Y Blood Gas Notified Time 2017 Sodium 132 130.0 L Potassium 4.4 Chloride 94 L 92.0 L Carbon Dioxide 20 L Anion Gap 22 H BUN 23 H Creatinine 1.4 Est GFR ( Amer) > 60 Est GFR (Non-Af Amer) 52 POC Glucose (mg/dL) Random Glucose 567 H* D Lactic Acid Calcium 9.5 Total Bilirubin 1.5 H AST 31 ALT 32 Alkaline Phosphatase 107 Total Protein 7.2 Albumin 4.3 Globulin 2.9 Albumin/Globulin Ratio 1.5 Lipase 31 Venous Blood Potassium 4.2 C. difficile Ag & Toxin 10/04/17 10/04/17 10/04/17 20:28 22:51 23:01 WBC RBC Hgb Hct MCV MCH MCHC RDW Plt Count MPV Neut % (Auto) Lymph % (Auto) [place] % (Auto) Eos % (Auto) Baso % (Auto) Neut # (Auto) Lymph # (Auto) [place] # (Auto) Eos # (Auto) Baso # (Auto) Neutrophils % (Manual) Band Neutrophils % Lymphocytes % (Manual) Monocytes % (Manual) Platelet Estimate Hypochromasia (manual) Microcytosis (manual) pCO2 30 L pO2 62 L 20 L HCO3 21.3 ABG pH 7.41 ABG Total CO2 19.9 L ABG O2 Saturation 96.0 ABG O2 Content 18.0 ABG Base Excess -4.4 L ABG Hemoglobin 14.1 ABG Carboxyhemoglobin 2.7 H POC ABG HHb (Measured) 3.8 ABG Methemoglobin 2.9 ABG O2 Capacity 18.8 Shaquille Test Yes VBG pH 7.38 VBG pCO2 36 L VBG HCO3 20.9 VBG Total CO2 22.4 VBG O2 Sat (Calc) 44.3 VBG Base Excess -3.3 L VBG Potassium 3.4 L A-a O2 Difference 50.0 Hgb O2 Saturation 90.6 L Glucose 287 H Lactate 4.4 H* Vent Mode Room air FiO2 21.0 21.0 Crit Value Called To Dr kenyetta saenz Crit Value Called By Juan Alberto Crit Value Read Back Y Blood Gas Notified Time 2315 Sodium 135.0 Potassium Chloride 101.0 Carbon Dioxide Anion Gap BUN Creatinine Est GFR ( Amer) Est GFR (Non-Af Amer) POC Glucose (mg/dL) Random Glucose Lactic Acid Calcium Total Bilirubin AST ALT Alkaline Phosphatase Total Protein Albumin Globulin Albumin/Globulin Ratio Lipase Venous Blood Potassium 3.4 L C. difficile Ag & Toxin Negative 10/04/17 10/05/17 10/05/17 23:28 01:52 04:12 WBC 3.8 L D RBC 4.61 Hgb 13.5 D Hct 39.6 MCV 85.8 MCH 29.2 MCHC 34.0 RDW 13.4 Plt Count 129 L D MPV 11.3 Neut % (Auto) 64.8 Lymph % (Auto) 20.7 [place] % (Auto) 14.0 H Eos % (Auto) 0.1 Baso % (Auto) 0.4 Neut # (Auto) 2.4 Lymph # (Auto) 0.8 L [place] # (Auto) 0.5 Eos # (Auto) 0.0 Baso # (Auto) 0.0 Neutrophils % (Manual) Band Neutrophils % Lymphocytes % (Manual) Monocytes % (Manual) Platelet Estimate Hypochromasia (manual) Microcytosis (manual) pCO2 pO2 HCO3 ABG pH ABG Total CO2 ABG O2 Saturation ABG O2 Content ABG Base Excess ABG Hemoglobin ABG Carboxyhemoglobin POC ABG HHb (Measured) ABG Methemoglobin ABG O2 Capacity Shaquille Test VBG pH VBG pCO2 VBG HCO3 VBG Total CO2 VBG O2 Sat (Calc) VBG Base Excess VBG Potassium A-a O2 Difference Hgb O2 Saturation Glucose Lactate Vent Mode FiO2 Crit Value Called To Crit Value Called By Crit Value Read Back Blood Gas Notified Time Sodium Potassium Chloride Carbon Dioxide Anion Gap BUN Creatinine Est GFR ( Amer) Est GFR (Non-Af Amer) POC Glucose (mg/dL) 271 H 250 H Random Glucose Lactic Acid Calcium Total Bilirubin AST ALT Alkaline Phosphatase Total Protein Albumin Globulin Albumin/Globulin Ratio Lipase Venous Blood Potassium C. difficile Ag & Toxin 10/05/17 10/05/17 10/05/17 04:12 04:12 04:29 WBC RBC Hgb Hct MCV MCH MCHC RDW Plt Count MPV Neut % (Auto) Lymph % (Auto) [place] % (Auto) Eos % (Auto) Baso % (Auto) Neut # (Auto) Lymph # (Auto) [place] # (Auto) Eos # (Auto) Baso # (Auto) Neutrophils % (Manual) Band Neutrophils % Lymphocytes % (Manual) Monocytes % (Manual) Platelet Estimate Hypochromasia (manual) Microcytosis (manual) pCO2 pO2 HCO3 ABG pH ABG Total CO2 ABG O2 Saturation ABG O2 Content ABG Base Excess ABG Hemoglobin ABG Carboxyhemoglobin POC ABG HHb (Measured) ABG Methemoglobin ABG O2 Capacity Shaquille Test VBG pH VBG pCO2 VBG HCO3 VBG Total CO2 VBG O2 Sat (Calc) VBG Base Excess VBG Potassium A-a O2 Difference Hgb O2 Saturation Glucose Lactate Vent Mode FiO2 Crit Value Called To Crit Value Called By Crit Value Read Back Blood Gas Notified Time Sodium 138 Potassium 3.6 Chloride 103 Carbon Dioxide 25 Anion Gap 14 BUN 17 Creatinine 1.1 Est GFR ( Amer) > 60 Est GFR (Non-Af Amer) > 60 POC Glucose (mg/dL) 222 H Random Glucose 228 H Lactic Acid 2.9 H Calcium 7.9 L Total Bilirubin AST ALT Alkaline Phosphatase Total Protein Albumin Globulin Albumin/Globulin Ratio Lipase Venous Blood Potassium C. difficile Ag & Toxin 10/05/17 07:23 WBC RBC Hgb Hct MCV MCH MCHC RDW Plt Count MPV Neut % (Auto) Lymph % (Auto) [place] % (Auto) Eos % (Auto) Baso % (Auto) Neut # (Auto) Lymph # (Auto) [place] # (Auto) Eos # (Auto) Baso # (Auto) Neutrophils % (Manual) Band Neutrophils % Lymphocytes % (Manual) Monocytes % (Manual) Platelet Estimate Hypochromasia (manual) Microcytosis (manual) pCO2 pO2 HCO3 ABG pH ABG Total CO2 ABG O2 Saturation ABG O2 Content ABG Base Excess ABG Hemoglobin ABG Carboxyhemoglobin POC ABG HHb (Measured) ABG Methemoglobin ABG O2 Capacity Shaquille Test VBG pH VBG pCO2 VBG HCO3 VBG Total CO2 VBG O2 Sat (Calc) VBG Base Excess VBG Potassium A-a O2 Difference Hgb O2 Saturation Glucose Lactate Vent Mode FiO2 Crit Value Called To Crit Value Called By Crit Value Read Back Blood Gas Notified Time Sodium Potassium Chloride Carbon Dioxide Anion Gap BUN Creatinine Est GFR ( Amer) Est GFR (Non-Af Amer) POC Glucose (mg/dL) 234 H Random Glucose Lactic Acid Calcium Total Bilirubin AST ALT Alkaline Phosphatase Total Protein Albumin Globulin Albumin/Globulin Ratio Lipase Venous Blood Potassium C. difficile Ag & Toxin Assessment & Plan (1) Dehydration Status: Acute (2) Coronary atherosclerosis Status: Chronic (3) Hypertensive cardiovascular disease Status: Chronic (4) High anion gap metabolic acidosis Status: Acute (5) Hyperglycemia due to type 2 diabetes mellitus Status: Acute (6) Colitis Status: Acute (7) Hyperglycemia due to type 2 diabetes mellitus Status: Acute (8) Sepsis Status: Acute (9) Tachyarrhythmia Status: Acute (10) Leukopenia Status: Acute - Assessment and Plan (Free Text) Plan: Continue present rx.
--- NOTE | 2017-10-05 17:11 | CP.PCM.CON ---
History of Present Illness - History of Present Illness History of Present Illness: 57 years old male with hx of HTN, DM II, and restless leg syndrome who was recently then given Augmentin about 10 days ago as prophylaxis for tooth extraction which was done on the 10/02/17. He comes to the ED with one week of loose diarrhea with blood associated with cramping geraldine-umbilical abdominal pains and lightheadedness on being erect. Also generalized weakness. The fever started 3 days prior to this admission. No headaches, chest pains dysuria. 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 absent: Blurred Vision, Diplopia, Photophobia Ears: absent: Decreased Hearing, Tinnitus Nose/Mouth/Throat: absent: Epistaxis, Nasal Congestion, Sinus Pain, Sinus Pressure - Cardiovascular Cardiovascular: absent: Chest Pain, Dyspnea, Edema - Respiratory Respiratory: absent: Cough, Dyspnea, Wheezing, Chest Congestion - Gastrointestinal Gastrointestinal: Abdominal Pain, Cramping, Diarrhea, Hematochezia. absent: Nausea, Vomiting - Genitourinary Genitourinary: absent: Dysuria, Flank Pain, Urinary Frequency - Musculoskeletal Musculoskeletal: Arthralgias. absent: Back Pain, Muscle Cramps - Integumentary Integumentary: absent: Pruritus, Rash, Skin Ulcer, Sores, Striae, Swelling - Neurological Neurological: Dizziness, Restless Legs, Weakness. absent: Confusion, Focal Weakness - Psychiatric Psychiatric: Depression. absent: Anxiety, Panic Attacks - Endocrine Endocrine: absent: Palpitations, Polydipsia, Polyphagia, Polyuria - Hematologic/Lymphatic Hematologic: absent: Easy Bleeding, Easy Bruising Past Patient History - Past Medical History & Family History Past Medical History?: Yes - Past Social History Smoking Status: Never Smoked Chewing Tobacco Use: No Cigar Use: No Alcohol: Social Drugs: Denies Home Situation {Lives}: With Family - CARDIAC Hx Hypercholesterolemia: Yes Hx Hypertension: Yes - PULMONARY Hx Sleep Apnea: Yes (C PAP) - NEUROLOGICAL Hx Neurological Disorder: Yes Hx Dizziness: Yes (ONLY WHEN GETS UP ABRUPTLY) - HEENT Hx HEENT Problems: No - RENAL Hx Chronic Kidney Disease: No - ENDOCRINE/METABOLIC Hx Endocrine Disorders: Yes Hx Diabetes Mellitus Type 2: Yes - HEMATOLOGICAL/ONCOLOGICAL Hx Blood Disorders: No - INTEGUMENTARY Hx Dermatological Problems: No - MUSCULOSKELETAL/RHEUMATOLOGICAL Hx Musculoskeletal Disorders: Yes Hx Back Pain: Yes Hx Osteoarthritis: Yes (SPINE) Other/Comment: CARPAL TUNNEL left - GASTROINTESTINAL Hx Gall Bladder Disease: Yes (CHOLECYSTECTOM Y 2013) - GENITOURINARY/GYNECOLOGICAL Hx Genitourinary Disorders: No - PSYCHIATRIC Hx Depression: Yes - SURGICAL HISTORY Hx Cholecystectomy: Yes Hx Coronary Artery Bypass Graft: Yes - ANESTHESIA Hx Anesthesia: Yes Hx Anesthesia Reactions: No Hx Malignant Hyperthermia: No Meds Allergies/Adverse Reactions: Allergies Allergy/AdvReac Type Severity Reaction Status Date / Time No Known Allergies Allergy Verified 10/04/17 18:48 - Medications Medications: Current Medications Acetaminophen (Tylenol 325mg Tab) 650 mg PO Q4 PRN PRN Reason: Fever >100.4 F Acetaminophen (Tylenol 325mg Tab) 650 mg PO Q6 PRN PRN Reason: Temperature Amlodipine Besylate (Norvasc) 10 mg PO DAILY [facility] Last Admin: 10/05/17 12:34 Dose: Not Given Aspirin (Aspirin Chewable) 81 mg PO DAILY [facility] Last Admin: 10/05/17 08:53 Dose: 81 mg Dicyclomine HCl (Bentyl) 20 mg PO QID [facility] Stop: 10/07/17 09:01 Last Admin: 10/05/17 17:09 Dose: 20 mg Home Med (Ropinirole Hydrochloride [Ropinirole Hydrochloride]) 0.5 mg PO [facility] Piperacillin Sod/Tazobactam (Sod 3.375 gm/ Sodium Chloride) 100 mls @ 100 mls/ hr IVPB Q6 [facility] PRN Reason: Protocol Last Admin: 10/05/17 10:03 Dose: 100 mls/hr Metronidazole (Flagyl 500mg/100ml Ns) 100 mls @ 100 mls/hr IVPB Q8 [facility] PRN Reason: Protocol Last Admin: 10/05/17 17:06 Dose: 100 mls/hr Sodium Chloride (Sodium Chloride 0.9%) 1,000 mls @ 200 mls/hr IV .Q5H [facility] Stop: 10/06/17 00:08 Last Admin: 10/05/17 17:08 Dose: 200 mls/hr Insulin Human Regular (Humulin R) 0 units SC Q4H [facility] PRN Reason: Protocol Last Admin: 10/05/17 17:04 Dose: Not Given Lisinopril (Zestril) 20 mg PO DAILY [facility] Last Admin: 10/05/17 12:34 Dose: Not Given Metoprolol Succinate (Toprol Xl) 25 mg PO DAILY [facility] Last Admin: 10/05/17 08:53 Dose: 25 mg Ondansetron HCl (Zofran Inj) 4 mg IVP Q4 PRN PRN Reason: Nausea/Vomiting Pantoprazole Sodium (Protonix Ec Tab) 40 mg PO DAILY [facility] Last Admin: 10/05/17 08:52 Dose: 40 mg Rivastigmine (Exelon 4.6 Mg/24 Hr Patch) 1 patch TD DAILY [facility] Last Admin: 10/05/17 08:54 Dose: 1 patch Physical Exam - Constitutional Appears: No Acute Distress, Chronically Ill - Head Exam Head Exam: ATRAUMATIC, NORMOCEPHALIC - Eye Exam Eye Exam: PERRL. absent: Scleral icterus - ENT Exam ENT Exam: Mucous Membranes Dry - Neck Exam Neck exam: Negative for: Lymphadenopathy - Respiratory Exam Respiratory Exam: Decreased Breath Sounds - Cardiovascular Exam Cardiovascular Exam: REGULAR RHYTHM - GI/Abdominal Exam GI & Abdominal Exam: Diminished Bowel Sounds, Soft. absent: Tenderness - Rectal Exam Rectal Exam: Deferred - Exam Exam: NORMAL INSPECTION - Extremities Exam Extremities exam: Positive for: pedal pulses present. Negative for: calf tenderness, pedal edema, tenderness - Back Exam Back exam: absent: CVA tenderness (L), CVA tenderness (R), paraspinal tenderness - Neurological Exam Neurological exam: Alert, CN II-XII Intact, Oriented x3, Reflexes Normal - Psychiatric Exam Psychiatric exam: Normal Mood - Skin Skin Exam: Dry, Intact Results - Vital Signs Recent Vital Signs: Last Vital Signs Temp 99.1 F 10/05/17 16:00 Pulse 94 H 10/05/17 16:00 Resp 17 10/05/17 16:00 BP 112/65 10/05/17 16:00 Pulse Ox 97 10/05/17 16:00 - Labs Result Diagrams: 10/05/17 04:12 10/05/17 04:12 Labs: Laboratory Results - last 24 hr 10/04/17 10/04/17 10/04/17 20:00 20:00 20:09 WBC 7.7 RBC 5.40 Hgb 15.7 Hct 46.3 MCV 85.7 MCH 29.1 MCHC 33.9 RDW 13.9 Plt Count 175 MPV 11.2 Neut % (Auto) 85.7 H Lymph % (Auto) 6.[address] [place] % (Auto) 7.9 Eos % (Auto) 0.0 Baso % (Auto) 0.1 Neut # (Auto) 6.6 Lymph # (Auto) 0.[address] [facility] # (Auto) 0.6 Eos # (Auto) 0.0 Baso # (Auto) 0.0 Neutrophils % (Manual) 74 Band Neutrophils % 8 H Lymphocytes % (Manual) 10 L Monocytes % (Manual) 8 Platelet Estimate Normal Hypochromasia (manual) Slight Microcytosis (manual) Slight pCO2 pO2 32 HCO3 ABG pH ABG Total CO2 ABG O2 Saturation ABG O2 Content ABG Base Excess ABG Hemoglobin ABG Carboxyhemoglobin POC ABG HHb (Measured) ABG Methemoglobin ABG O2 Capacity Shaquille Test VBG pH 7.39 VBG pCO2 35 L VBG HCO3 21.5 VBG Total CO2 22.3 VBG O2 Sat (Calc) 67.3 H VBG Base Excess -3.1 L VBG Potassium 4.2 A-a O2 Difference Hgb O2 Saturation Glucose 606 H* D Lactate 4.7 H* Vent Mode FiO2 21.0 Crit Value Called To dany Chávez md Crit Value Called By Sage durán Crit Value Read Back Y Blood Gas Notified Time 2017 Sodium 132 130.0 L Potassium 4.4 Chloride 94 L 92.0 L Carbon Dioxide 20 L Anion Gap 22 H BUN 23 H Creatinine 1.4 Est GFR ( Amer) > 60 Est GFR (Non-Af Amer) 52 POC Glucose (mg/dL) Random Glucose 567 H* D Lactic Acid Calcium 9.5 Total Bilirubin 1.5 H AST 31 ALT 32 Alkaline Phosphatase 107 Total Protein 7.2 Albumin 4.3 Globulin 2.9 Albumin/Globulin Ratio 1.5 Lipase 31 Venous Blood Potassium 4.2 C. difficile Ag & Toxin 10/04/17 10/04/17 10/04/17 20:28 22:51 23:01 WBC RBC Hgb Hct MCV MCH MCHC RDW Plt Count MPV Neut % (Auto) Lymph % (Auto) [facility] % (Auto) Eos % (Auto) Baso % (Auto) Neut # (Auto) Lymph # (Auto) [facility] # (Auto) Eos # (Auto) Baso # (Auto) Neutrophils % (Manual) Band Neutrophils % Lymphocytes % (Manual) Monocytes % (Manual) Platelet Estimate Hypochromasia (manual) Microcytosis (manual) pCO2 30 L pO2 62 L 20 L HCO3 21.3 ABG pH 7.41 ABG Total CO2 19.9 L ABG O2 Saturation 96.0 ABG O2 Content 18.0 ABG Base Excess -4.4 L ABG Hemoglobin 14.1 ABG Carboxyhemoglobin 2.7 H POC ABG HHb (Measured) 3.8 ABG Methemoglobin 2.9 ABG O2 Capacity 18.8 Shaquille Test Yes VBG pH 7.38 VBG pCO2 36 L VBG HCO3 20.9 VBG Total CO2 22.4 VBG O2 Sat (Calc) 44.3 VBG Base Excess -3.3 L VBG Potassium 3.4 L A-a O2 Difference 50.0 Hgb O2 Saturation 90.6 L Glucose 287 H Lactate 4.4 H* Vent Mode Room air FiO2 21.0 21.0 Crit Value Called To Dr kenyetta saenz Crit Value Called By Juan Alberto Crit Value Read Back Y Blood Gas Notified Time 2315 Sodium 135.0 Potassium Chloride 101.0 Carbon Dioxide Anion Gap BUN Creatinine Est GFR ( Amer) Est GFR (Non-Af Amer) POC Glucose (mg/dL) Random Glucose Lactic Acid Calcium Total Bilirubin AST ALT Alkaline Phosphatase Total Protein Albumin Globulin Albumin/Globulin Ratio Lipase Venous Blood Potassium 3.4 L C. difficile Ag & Toxin Negative 10/04/17 10/05/17 10/05/17 23:28 01:52 04:12 WBC 3.8 L D RBC 4.61 Hgb 13.5 D Hct 39.6 MCV 85.8 MCH 29.2 MCHC 34.0 RDW 13.4 Plt Count 129 L D MPV 11.3 Neut % (Auto) 64.8 Lymph % (Auto) 20.7 [facility] % (Auto) 14.0 H Eos % (Auto) 0.1 Baso % (Auto) 0.4 Neut # (Auto) 2.4 Lymph # (Auto) 0.[address] [facility] # (Auto) 0.5 Eos # (Auto) 0.0 Baso # (Auto) 0.0 Neutrophils % (Manual) Band Neutrophils % Lymphocytes % (Manual) Monocytes % (Manual) Platelet Estimate Hypochromasia (manual) Microcytosis (manual) pCO2 pO2 HCO3 ABG pH ABG Total CO2 ABG O2 Saturation ABG O2 Content ABG Base Excess ABG Hemoglobin ABG Carboxyhemoglobin POC ABG HHb (Measured) ABG Methemoglobin ABG O2 Capacity Shaquille Test VBG pH VBG pCO2 VBG HCO3 VBG Total CO2 VBG O2 Sat (Calc) VBG Base Excess VBG Potassium A-a O2 Difference Hgb O2 Saturation Glucose Lactate Vent Mode FiO2 Crit Value Called To Crit Value Called By Crit Value Read Back Blood Gas Notified Time Sodium Potassium Chloride Carbon Dioxide Anion Gap BUN Creatinine Est GFR ( Amer) Est GFR (Non-Af Amer) POC Glucose (mg/dL) 271 H 250 H Random Glucose Lactic Acid Calcium Total Bilirubin AST ALT Alkaline Phosphatase Total Protein Albumin Globulin Albumin/Globulin Ratio Lipase Venous Blood Potassium C. difficile Ag & Toxin 10/05/17 10/05/17 10/05/17 04:12 04:12 04:29 WBC RBC Hgb Hct MCV MCH MCHC RDW Plt Count MPV Neut % (Auto) Lymph % (Auto) [facility] % (Auto) Eos % (Auto) Baso % (Auto) Neut # (Auto) Lymph # (Auto) [facility] # (Auto) Eos # (Auto) Baso # (Auto) Neutrophils % (Manual) Band Neutrophils % Lymphocytes % (Manual) Monocytes % (Manual) Platelet Estimate Hypochromasia (manual) Microcytosis (manual) pCO2 pO2 HCO3 ABG pH ABG Total CO2 ABG O2 Saturation ABG O2 Content ABG Base Excess ABG Hemoglobin ABG Carboxyhemoglobin POC ABG HHb (Measured) ABG Methemoglobin ABG O2 Capacity Shaquille Test VBG pH VBG pCO2 VBG HCO3 VBG Total CO2 VBG O2 Sat (Calc) VBG Base Excess VBG Potassium A-a O2 Difference Hgb O2 Saturation Glucose Lactate Vent Mode FiO2 Crit Value Called To Crit Value Called By Crit Value Read Back Blood Gas Notified Time Sodium 138 Potassium 3.6 Chloride 103 Carbon Dioxide 25 Anion Gap 14 BUN 17 Creatinine 1.1 Est GFR ( Amer) > 60 Est GFR (Non-Af Amer) > 60 POC Glucose (mg/dL) 222 H Random Glucose 228 H Lactic Acid 2.9 H Calcium 7.9 L Total Bilirubin AST ALT Alkaline Phosphatase Total Protein Albumin Globulin Albumin/Globulin Ratio Lipase Venous Blood Potassium C. difficile Ag & Toxin 10/05/17 10/05/17 10/05/17 07:23 12:10 16:53 WBC RBC Hgb Hct MCV MCH MCHC RDW Plt Count MPV Neut % (Auto) Lymph % (Auto) [facility] % (Auto) Eos % (Auto) Baso % (Auto) Neut # (Auto) Lymph # (Auto) [facility] # (Auto) Eos # (Auto) Baso # (Auto) Neutrophils % (Manual) Band Neutrophils % Lymphocytes % (Manual) Monocytes % (Manual) Platelet Estimate Hypochromasia (manual) Microcytosis (manual) pCO2 pO2 HCO3 ABG pH ABG Total CO2 ABG O2 Saturation ABG O2 Content ABG Base Excess ABG Hemoglobin ABG Carboxyhemoglobin POC ABG HHb (Measured) ABG Methemoglobin ABG O2 Capacity Shaquille Test VBG pH VBG pCO2 VBG HCO3 VBG Total CO2 VBG O2 Sat (Calc) VBG Base Excess VBG Potassium A-a O2 Difference Hgb O2 Saturation Glucose Lactate Vent Mode FiO2 Crit Value Called To Crit Value Called By Crit Value Read Back Blood Gas Notified Time Sodium Potassium Chloride Carbon Dioxide Anion Gap BUN Creatinine Est GFR ( Amer) Est GFR (Non-Af Amer) POC Glucose (mg/dL) 234 H 194 H 127 H Random Glucose Lactic Acid Calcium Total Bilirubin AST ALT Alkaline Phosphatase Total Protein Albumin Globulin Albumin/Globulin Ratio Lipase Venous Blood Potassium C. difficile Ag & Toxin Assessment & Plan (1) Colitis Status: Acute (2) Dehydration Status: Acute (3) Sepsis Status: Acute - Assessment and Plan (Free Text) Assessment: severe colitis r/o bacterial ( salmonella, shigella, Yersinia Campylobacter ) vs viral cont IV antibiotics and check cultures serologies cautious hydration
[2017-10-05] MEDS: Ciprofloxacin 400mg/200ml D5W 400 MG/200 ML BAG IVPB SCH (21:23)
[2017-10-05] MEDS: ROPINIROLE HYDROCHLORIDE 0.5 MG PO SCH (21:24)
[2017-10-06] MEDS: Insulin Regular 100 units/ml SC SCH ×6 (01:11→21:49)
[2017-10-06] MEDS: metroNIDAZOLE 500mg/100ml NS 100 ML IVPB SCH ×3 (01:11→16:46)
[2017-10-06 05:25] LABS: BASO % 0.4 % (0.0-2.0); EOS % 0.3 % (0.0-4.0); HEMOGLOBIN 12.4 g/dL (12.0-18.0); LYMPH # 0.9 K/uL (1.0-4.3); LYMPH % 13.9 % (20.0-40.0); MEAN CORPUSCULAR HEMOGLOBIN 28.3 pg (27.0-31.0); MEAN CORPUSCULAR HGB CONC 33.2 g/dL (33.0-37.0); MEAN PLATELET VOLUME 10.7 fl (7.2-11.7); MONO # 0.3 K/uL (0.0-0.8); MONO % 4.6 % (0.0-10.0); NEUT # 5.4 K/uL (1.8-7.0); NEUT % 80.8 % (50.0-75.0); NRBC % 0.1 % (0.0-0.0); RBC 4.39 Mil/uL (4.40-5.90); RED CELL DISTRIBUTION WIDTH 13.5 % (11.5-14.5); WHITE BLOOD COUNT 6.7 K/uL (4.8-10.8)
[2017-10-06 05:47] LABS: ALB/GLOB RATIO 1.1 (1.0-2.1); ALBUMIN 2.7 g/dL (3.5-5.0); ALT/SGPT 43 U/L (21-72); AST/SGOT 35 U/L (17-59); BLOOD UREA NITROGEN 10 mg/dl (9-20); CALCIUM 7.2 mg/dL (8.4-10.2); GFR AFRICAN-AMERICAN > 60; GFR NON-AFRICAN AMERICAN > 60
[2017-10-06] MEDS ORDERED: Potassium Chloride 20 mEq ER Tab PO ONE (08:12)
[2017-10-06] MEDS: Metoprolol Succinate 25 mg XL Tab PO SCH (08:49)
[2017-10-06] MEDS: Pantoprazole 40 mg EC Tab PO SCH (08:50)
[2017-10-06] MEDS ORDERED: Potassium CL 10mEq/100ml 100 ML IVPB SCH (09:00)
[2017-10-06] MEDS: Sodium Chloride 0.9% 1,000 ML IV SCH ×3 (09:04→21:50)
[2017-10-06] MEDS: Ciprofloxacin 400mg/200ml D5W 400 MG/200 ML BAG IVPB SCH ×2 (09:06→21:48)
--- NOTE | 2017-10-06 11:38 | CP.PCM.PN ---
Subjective - Date & Time of Evaluation Date of Evaluation: 10/06/17 Time of Evaluation: 11:39 - Subjective Subjective: Still c/o severe diarrhea with electrolytes imbalance, on IVF 150 cc/hr and iv antibx. Will continue present rx. Objective - Vital Signs/Intake and Output Vital Signs (last 24 hours): Temp Pulse Resp BP Pulse Ox 97.8 F 81 12 120/63 93 L 10/06/17 08:00 10/06/17 08:58 10/06/17 08:00 10/06/17 08:58 10/06/17 08:00 Intake and Output: 10/05/17 10/06/17 23:59 11:59 Intake Total 3440 3140 Output Total 450 1702 Balance 2990 1438 - Medications Medications: Current Medications Acetaminophen (Tylenol 325mg Tab) 650 mg PO Q4 PRN PRN Reason: Fever >100.4 F Acetaminophen (Tylenol 325mg Tab) 650 mg PO Q6 PRN PRN Reason: Temperature Amlodipine Besylate (Norvasc) 10 mg PO DAILY [facility] Last Admin: 10/06/17 08:58 Dose: 10 mg Aspirin (Aspirin Chewable) 81 mg PO DAILY [facility] Last Admin: 10/06/17 08:50 Dose: 81 mg Dicyclomine HCl (Bentyl) 20 mg PO QID [facility] Stop: 10/07/17 09:01 Last Admin: 10/06/17 08:50 Dose: 20 mg Home Med (Ropinirole Hydrochloride [Ropinirole Hydrochloride]) 0.5 mg PO HS [facility] Last Admin: 10/05/17 21:24 Dose: 0.5 mg Metronidazole (Flagyl 500mg/100ml Ns) 100 mls @ 100 mls/hr IVPB Q8 [facility] PRN Reason: Protocol Last Admin: 10/06/17 08:53 Dose: 100 mls/hr Ciprofloxacin (Cipro 400mg/200ml Dsw) 400 mg in 200 mls @ 200 mls/hr IVPB Q12 [facility] PRN Reason: Protocol Last Admin: 10/06/17 09:06 Dose: 200 mls/hr Sodium Chloride (Sodium Chloride 0.9%) 1,000 mls @ 150 mls/hr IV .Q6H40M [facility] Stop: 10/07/17 08:18 Last Admin: 10/06/17 09:04 Dose: 150 mls/hr Insulin Detemir (Levemir) 10 units SC [facility] Insulin Human Regular (Humulin R) 0 units SC [facility] PRN Reason: Protocol Lisinopril (Zestril) 20 mg PO DAILY [facility] Last Admin: 10/06/17 08:48 Dose: 20 mg Metoprolol Succinate (Toprol Xl) 25 mg PO DAILY [facility] Last Admin: 10/06/17 08:49 Dose: 25 mg Pantoprazole Sodium (Protonix Ec Tab) 40 mg PO DAILY [facility] Last Admin: 10/06/17 08:50 Dose: 40 mg Rivastigmine (Exelon 4.6 Mg/24 Hr Patch) 1 patch TD DAILY [facility] Last Admin: 10/06/17 08:55 Dose: 1 patch - Labs Labs: 10/06/17 04:40 10/06/17 04:40 - Constitutional Appears: Chronically Ill - Head Exam Head Exam: ATRAUMATIC, NORMAL INSPECTION, NORMOCEPHALIC - ENT Exam ENT Exam: Mucous Membranes Dry - Neck Exam Neck Exam: Full ROM - Respiratory Exam Respiratory Exam: Decreased Breath Sounds - Cardiovascular Exam Cardiovascular Exam: REGULAR RHYTHM, +S1, +S2 - GI/Abdominal Exam GI & Abdominal Exam: Hypoactive Bowel Sounds - Extremities Exam Extremities Exam: Normal Inspection - Neurological Exam Neurological Exam: Alert, Awake, CN II-XII Intact, Oriented x3 - Psychiatric Exam Psychiatric exam: Normal Affect - Skin Skin Exam: Normal Color Assessment and Plan (1) Dehydration Status: Acute (2) Coronary atherosclerosis Status: Chronic (3) Hypertensive cardiovascular disease Status: Chronic (4) High anion gap metabolic acidosis Status: Acute (5) Hyperglycemia due to type 2 diabetes mellitus Status: Acute (6) Colitis Status: Acute (7) Hyperglycemia due to type 2 diabetes mellitus Status: Acute (8) Sepsis Status: Acute (9) Tachyarrhythmia Status: Acute (10) Leukopenia Status: Acute - Assessment and Plan (Free Text) Plan: Continue present rx. Correct K, stool c/s still pending.
[2017-10-06] MEDS: ROPINIROLE HYDROCHLORIDE 0.5 MG PO SCH (21:50)
--- NOTE | 2017-10-06 21:52 | PN ---
Copied To: Harpreet Rodriguez MD Attending MD: Harpreet Rodriguez MD DATE: 10/06/2017 CRITICAL CARE PROGRESS NOTE LOCATION: The patient in ICU, bed 432. TIME SPENT: 35 minutes. The patient is seen and evaluated at the bedside. Past medical, surgical, social, family history reviewed. SUBJECTIVE: A 57-year-old male with history significant for hypertension, uncontrolled diabetes mellitus type 2, coronary artery disease, admitted with abdominal pain, diarrhea, and dehydration. Blood sugar on admission more than [address] showed colitis, on ciprofloxacin and Flagyl. Overnight, normotensive, afebrile. No nausea. No shortness of breath or chest pain. Diarrhea persists, nonbloody. Awaiting GI evaluation. PHYSICAL EXAMINATION: GENERAL: This morning, alert and awake, follows commands appropriate. VITAL SIGNS: Temperature 97.8, heart rate 81 and regular, blood pressure 120/63, oxygen saturation 95% on room air. HEAD, EYES, EARS, NOSE, AND THROAT: Pupils are reactive. Conjunctivae pink. Sclerae are white. NECK: Supple. Trachea central. CHEST: Bilateral breath sounds. Clear to auscultation. HEART: Rhythm regular. S1 and S2, normal intensity. No S3 or S4 gallop. No audible murmur. ABDOMEN: Bowel sounds present. Soft. Mild diffuse tenderness. No rebound tenderness. No palpable mass. Inguinal hernia orifice normal. EXTREMITIES: Without clubbing, cyanosis, or edema. NEUROLOGIC: Nonfocal. CURRENT MEDICATIONS: Include Tylenol 650 every 4 p.r.n., Norvasc 10 mg p.o. daily, aspirin 81 mg daily, ciprofloxacin 400 mg IV every 12, Flagyl 500 mg IV every 8, Bentyl 20 mg p.o. four times a day p.r.n., sodium chloride 150 mL per hour, Exelon 4.6 mg daily, Protonix 40 p.o. daily, Zestril 20 mg p.o. daily, Accu-Chek with regular insulin coverage. LABORATORY DATA: WBC 6.7, hemoglobin 12.4, hematocrit 37.3, platelet count 111, neutrophils 80.8, lymphocytes 13.9, monocytes 4.6. Lactate level 4.7, down to 4.4. SMA-7: Sodium 130, potassium 3.2, chloride 107, CO2 is 21, anion gap 10, BUN 10, creatinine 0.8, hemoglobin A1c 11.7, calcium 7.2. AST 35, ALT 43, alkaline phosphatase 58, total protein 5.2, albumin 2.7. Serology: C. difficile negative. Microbiology: Blood culture no growth. Chest x-ray: No active disease. Abdominal CT shows thickening of the colon, possibly representing an infectious, inflammatory colitis, more in the descending and sigmoid colon. IMPRESSION: 1. Neurologic: Alert, awake, oriented to name, place and time. 2. Pulmonary: Chest x-ray shows no active disease. No respiratory symptoms. 3. Cardiac: History of coronary artery disease. No history of atrial fibrillation. Hypertension controlled on amlodipine 10 mg daily, lisinopril 20 mg daily, metoprolol 25 mg p.o. daily. 4. Gastrointestinal: Diverticulitis more so on the descending colon, rule out diverticulitis. Clostridium difficile negative, on Cipro and Flagyl. GI evaluation pending. 5. Endocrine: History of diabetes mellitus type 2, uncontrolled. Hemoglobin A1c 11.7. Continue Accu-Chek with regular insulin coverage. Consider adding a long-acting basal insulin for better control of blood sugar, maintain below 180. 6. Renal: No acute issues noted. Harpreet Rodriguez MD
[2017-10-06] MEDS ORDERED: Insulin Detemir 100 Units/ml Inj SC SCH (22:00)
[2017-10-07] MEDS: metroNIDAZOLE 500mg/100ml NS 100 ML IVPB SCH ×3 (02:25→17:57)
[2017-10-07] MEDS: Sodium Chloride 0.9% 1,000 ML IV SCH ×2 (05:06→08:09)
[2017-10-07] MEDS ORDERED: Insulin Detemir 100 Units/ml Inj SC SCH (07:13)
[2017-10-07] MEDS: Insulin Regular 100 units/ml SC SCH ×4 (08:07→22:05)
[2017-10-07] MEDS: Ciprofloxacin 400mg/200ml D5W 400 MG/200 ML BAG IVPB SCH (08:09)
[2017-10-07 08:21] LABS: BASO % 0.6 % (0.0-2.0); EOS # 0.1 K/uL (0.0-0.7); EOS % 1.2 % (0.0-4.0); HEMOGLOBIN 13.6 g/dL (12.0-18.0); LYMPH # 1.3 K/uL (1.0-4.3); LYMPH % 15.2 % (20.0-40.0); MEAN CELL VOLUME 83.7 fl (80.0-94.0); MEAN CORPUSCULAR HEMOGLOBIN 28.7 pg (27.0-31.0); MEAN CORPUSCULAR HGB CONC 34.3 g/dL (33.0-37.0); MEAN PLATELET VOLUME 11.1 fl (7.2-11.7); MONO # 0.5 K/uL (0.0-0.8); MONO % 6.5 % (0.0-10.0); NEUT # 6.4 K/uL (1.8-7.0); NEUT % 76.5 % (50.0-75.0); RBC 4.76 Mil/uL (4.40-5.90); RED CELL DISTRIBUTION WIDTH 13.5 % (11.5-14.5); WHITE BLOOD COUNT 8.3 K/uL (4.8-10.8)
--- NOTE | 2017-10-07 08:25 | PN ---
Copied To: Harpreet Rodriguez MD Attending MD: Harpreet Rodriguez MD DATE: 10/05/2017 LOCATION: The patient in ICU, bed 432. TIME SPENT: 35 minutes. SUBJECTIVE: A 57-year-old male with a history of CAD, diabetes mellitus type 2, hypertension, admitted with presyncope, severe weakness, and diarrhea without blood in the stool, , having Augmentin and amoxycillin 2 weeks prior to the admission. Overnight, normotensive, afebrile. Telemetry, sinus rhythm. This morning, alert, awake, follows commands appropriate. Complaining of continuous diarrhea, watery in nature, associated with mild cramps. PHYSICAL EXAMINATION: VITAL SIGNS: Temperature 100.3, heart rate 94, blood pressure 111/63, mean arterial pressure 79, respiratory rate 22, and oxygen saturation 93%. Intake 2960, output 450, positive balance 2510. HEAD, EYES, EARS, NOSE, AND THROAT: Atraumatic, normocephalic. Mucous membrane dry. NECK: Supple. CHEST: Bilateral breath sounds. Clear to auscultation. HEART: Rhythm regular. S1, S2 normal in intensity. ABDOMEN: Bowel sounds present. Soft. Mildly distended. LABORATORY DATA: WBC 3.8, hemoglobin 13.5, hematocrit 39.6, platelet count 129. ABG: PH 7.38, pCO2 36, oxygen saturation 44.3, potassium 3.4. Venous lactate level 4.4. SMA-7: Sodium 138, potassium 3.6, chloride 103, CO2 is 25, blood urea nitrogen 17, creatinine 1.1, random glucose 127, lactate acid repeat 2.9. Serology: C. difficile antigen and toxin negative. CURRENT MEDICATIONS: Tylenol 650 every 4 p.r.n., Norvasc 10 mg p.o. daily, aspirin 81 mg p.o. daily, ciprofloxacin 400 mg IV every 12, Bentyl 20 mg p.o. 4 times daily, insulin regular based on Accu-Chek, lisinopril 20 mg p.o. daily, Toprol-XL 25 mg p.o. daily, Flagyl 500 mg IV every 8, Protonix 40 daily, Exelon 1 patch daily, sodium chloride at 200 mL/hour. LABORATORY DATA: Microbiology, none reported. CAT scan of the abdomen and pelvis shows thickening of the colon, possible infectious, inflammatory colitis. IMPRESSION: Acute colitis, septic shock, azotemia and dehydration, diabetes mellitus type 2 with hypoglycemia, hypertension, restless legs syndrome, sleep apnea. Stool for Clostridium difficile negative, on Cipro and Flagyl for colitis. Appreciate Infectious Disease. Follow up of blood culture. Diabetes mellitus type 2, continue IV fluid, regular insulin. Follow hemoglobin A1c. Hypertension, on metoprolol. Continue deep venous thrombosis and gastrointestinal prophylaxis. SARAHI LymanD: 10/05/2017 18:27:26 [facility]
[2017-10-07 08:26] LABS: HEPATITIS B SURFACE AG Negative (NEGATIVE)
[2017-10-07 08:32] LABS: HEPATITIS A IGM NEGATIVE (NEGATIVE); HEPATITIS B CORE AB NEGATIVE (NEGATIVE)
[2017-10-07 08:40] LABS: HEPATITIS C ANTIBODY NEGATIVE (NEGATIVE)
[2017-10-07 09:01] LABS: BLOOD UREA NITROGEN 8 mg/dl (9-20); GFR AFRICAN-AMERICAN > 60; GFR NON-AFRICAN AMERICAN > 60
[2017-10-07] MEDS: Pantoprazole 40 mg EC Tab PO SCH (09:15)
[2017-10-07] MEDS: Metoprolol Succinate 25 mg XL Tab PO SCH (09:17)
[2017-10-07] MEDS ORDERED: Potassium Chloride 20 mEq ER Tab PO STA (09:58)
--- NOTE | 2017-10-07 11:54 | CP.PCM.PN ---
Subjective - Date & Time of Evaluation Date of Evaluation: 10/07/17 Time of Evaluation: 09:00 - Subjective Subjective: afeb on IV antibiotics however diarrhea persists K remains low and lactate hig cont hydration all cultures negative thus far await GI eval Objective - Vital Signs/Intake and Output Vital Signs (last 24 hours): Temp Pulse Resp BP Pulse Ox 98.4 F 75 20 128/80 97 10/07/17 08:00 10/07/17 09:17 10/07/17 08:00 10/07/17 09:17 10/07/17 08:00 Intake and Output: 10/07/17 10/07/17 06:59 18:59 Intake Total 960 Output Total 550 Balance 410 - Medications Medications: Current Medications Acetaminophen (Tylenol 325mg Tab) 650 mg PO Q4 PRN PRN Reason: Fever >100.4 F Acetaminophen (Tylenol 325mg Tab) 650 mg PO Q6 PRN PRN Reason: Temperature Amlodipine Besylate (Norvasc) 10 mg PO DAILY [facility] Last Admin: 10/07/17 09:16 Dose: 10 mg Aspirin (Aspirin Chewable) 81 mg PO DAILY [facility] Last Admin: 10/07/17 09:14 Dose: 81 mg Atorvastatin Calcium (Lipitor) 40 mg PO DAILY [facility] Home Med (Ropinirole Hydrochloride [Ropinirole Hydrochloride]) 0.5 mg PO HS [facility] Last Admin: 10/06/17 21:50 Dose: 0.5 mg Metronidazole (Flagyl 500mg/100ml Ns) 100 mls @ 100 mls/hr IVPB Q8 [facility] PRN Reason: Protocol Last Admin: 10/07/17 09:37 Dose: 100 mls/hr Ciprofloxacin (Cipro 400mg/200ml Dsw) 400 mg in 200 mls @ 200 mls/hr IVPB Q12 [facility] PRN Reason: Protocol Last Admin: 10/07/17 08:09 Dose: 200 mls/hr Potassium Chloride/Sodium Chloride (Potassium Chl 20 Meq In Ns) 1,000 mls @ 100 mls/hr IV .Q10H [facility] Stop: 10/08/17 11:28 Insulin Detemir (Levemir) 14 units SC HS [facility] Insulin Human Regular (Humulin R) 0 units SC ACHS [facility] PRN Reason: Protocol Last Admin: 10/07/17 11:41 Dose: 3 u Lisinopril (Zestril) 20 mg PO DAILY [facility] Last Admin: 10/07/17 09:15 Dose: 20 mg Metoprolol Succinate (Toprol Xl) 25 mg PO DAILY [facility] Last Admin: 10/07/17 09:17 Dose: 25 mg Pantoprazole Sodium (Protonix Ec Tab) 40 mg PO DAILY [facility] Last Admin: 10/07/17 09:15 Dose: 40 mg Rivastigmine (Exelon 4.6 Mg/24 Hr Patch) 1 patch TD DAILY [facility] Last Admin: 10/07/17 09:18 Dose: 1 patch - Labs Labs: 10/07/17 08:15 10/07/17 08:15 - Constitutional Appears: Non-toxic - Head Exam Head Exam: NORMOCEPHALIC - Eye Exam Eye Exam: PERRL - ENT Exam ENT Exam: Mucous Membranes Dry - Neck Exam Neck Exam: absent: Lymphadenopathy - Respiratory Exam Respiratory Exam: Decreased Breath Sounds - Cardiovascular Exam Cardiovascular Exam: REGULAR RHYTHM - GI/Abdominal Exam GI & Abdominal Exam: Distended, Soft Assessment and Plan (1) Colitis Status: Acute (2) Dehydration Status: Acute (3) Sepsis Status: Acute - Assessment and Plan (Free Text) Assessment: cont iv antibiotics await GI eval
--- NOTE | 2017-10-07 13:20 | CP.PCM.PN ---
Subjective - Date & Time of Evaluation Date of Evaluation: 10/07/17 Time of Evaluation: 13:21 - Subjective Subjective: Improving on preset rx. Still diarrhea, electrolytes imbalance and uncontrolled DM. Continue IVF, correct hypopotassemia. The pal is to DC in am on po antibx if stable. Diabetic education. Objective - Vital Signs/Intake and Output Vital Signs (last 24 hours): Temp Pulse Resp BP Pulse Ox 98.4 F 75 20 128/80 97 10/07/17 08:00 10/07/17 09:17 10/07/17 08:00 10/07/17 09:17 10/07/17 08:00 Intake and Output: 10/07/17 10/07/17 11:59 23:59 Intake Total 960 150 Output Total 550 Balance 410 150 - Medications Medications: Current Medications Acetaminophen (Tylenol 325mg Tab) 650 mg PO Q4 PRN PRN Reason: Fever >100.4 F Acetaminophen (Tylenol 325mg Tab) 650 mg PO Q6 PRN PRN Reason: Temperature Amlodipine Besylate (Norvasc) 10 mg PO DAILY [facility] Last Admin: 10/07/17 09:16 Dose: 10 mg Aspirin (Aspirin Chewable) 81 mg PO DAILY [facility] Last Admin: 10/07/17 09:14 Dose: 81 mg Atorvastatin Calcium (Lipitor) 40 mg PO DAILY [facility] Last Admin: 10/07/17 12:08 Dose: 40 mg Glipizide (Glucotrol Xl) 5 mg PO BRK [facility] Home Med (Ropinirole Hydrochloride [Ropinirole Hydrochloride]) 0.5 mg PO HS [facility] Last Admin: 10/06/17 21:50 Dose: 0.5 mg Metronidazole (Flagyl 500mg/100ml Ns) 100 mls @ 100 mls/hr IVPB Q8 [facility] PRN Reason: Protocol Last Admin: 10/07/17 09:37 Dose: 100 mls/hr Ciprofloxacin (Cipro 400mg/200ml Dsw) 400 mg in 200 mls @ 200 mls/hr IVPB Q12 [facility] PRN Reason: Protocol Last Admin: 10/07/17 08:09 Dose: 200 mls/hr Potassium Chloride/Sodium Chloride (Potassium Chl 20 Meq In Ns) 1,000 mls @ 100 mls/hr IV .Q10H [facility] Stop: 10/08/17 11:28 Insulin Detemir (Levemir) 14 units SC HS [facility] Insulin Human Regular (Humulin R) 0 units SC ACHS [facility] PRN Reason: Protocol Last Admin: 10/07/17 11:41 Dose: 3 u Lisinopril (Zestril) 20 mg PO DAILY [facility] Last Admin: 10/07/17 09:15 Dose: 20 mg Metoprolol Succinate (Toprol Xl) 25 mg PO DAILY [facility] Last Admin: 10/07/17 09:17 Dose: 25 mg Pantoprazole Sodium (Protonix Ec Tab) 40 mg PO DAILY [facility] Last Admin: 10/07/17 09:15 Dose: 40 mg Potassium Chloride (K-Dur 20 Meq Er Tab) 40 meq PO DAILY [facility] Rivastigmine (Exelon 4.6 Mg/24 Hr Patch) 1 patch TD DAILY [facility] Last Admin: 10/07/17 09:18 Dose: 1 patch - Labs Labs: 10/07/17 08:15 10/07/17 08:15 - Constitutional Appears: Chronically Ill - Head Exam Head Exam: ATRAUMATIC, NORMAL INSPECTION, NORMOCEPHALIC - ENT Exam ENT Exam: Mucous Membranes Dry - Neck Exam Neck Exam: Full ROM - Respiratory Exam Respiratory Exam: Clear to Ausculation Bilateral - Cardiovascular Exam Cardiovascular Exam: REGULAR RHYTHM, +S1, +S2 - GI/Abdominal Exam GI & Abdominal Exam: Hypoactive Bowel Sounds - Neurological Exam Neurological Exam: Alert, Awake, Oriented x3 - Psychiatric Exam Psychiatric exam: Normal Affect - Skin Skin Exam: Normal Color Assessment and Plan (1) Dehydration Status: Acute (2) Coronary atherosclerosis Status: Chronic (3) Hypertensive cardiovascular disease Status: Chronic (4) High anion gap metabolic acidosis Status: Acute (5) Hyperglycemia due to type 2 diabetes mellitus Status: Acute (6) Colitis Status: Acute (7) Hyperglycemia due to type 2 diabetes mellitus Status: Acute (8) Sepsis Status: Acute (9) Tachyarrhythmia Status: Acute (10) Leukopenia Status: Acute - Assessment and Plan (Free Text) Plan: As above.
[2017-10-07] MEDS: Potassium Chl 20 mEq in NS 1,000 ML IV SCH ×2 (13:21→23:32)
--- NOTE | 2017-10-07 15:10 | CP.PCM.PCO ---
Assessment & Plan - Assessment and Plan (Free Text) Assessment: Stool cx reported as Shigella sonnei sensitive only to Chloramphenicol and Ceftizosin ( spoke to Emily in [facility] micro lab) notified D/c cipro start Rocephin 1 gm ivpb daily enteric precautions/ contact isolation infection control to be notified/ report to state
[2017-10-07 16:23] LABS: BLOOD UREA NITROGEN 8 mg/dl (9-20); CALCIUM 8.6 mg/dL (8.4-10.2); GFR AFRICAN-AMERICAN > 60; GFR NON-AFRICAN AMERICAN > 60
[2017-10-07] MEDS: GlipiZIDE 5 mg SR Tab PO SCH (16:55)
[2017-10-07] MEDS: Lactobacillus Acidophilus 500 MU Cap PO SCH (16:55)
[2017-10-07] MEDS: ROPINIROLE HYDROCHLORIDE 0.5 MG PO SCH (22:24)
[2017-10-08] MEDS: metroNIDAZOLE 500mg/100ml NS 100 ML IVPB SCH ×3 (00:21→16:52)
[2017-10-08 07:04] LABS: BASO % 0.4 % (0.0-2.0); EOS # 0.1 K/uL (0.0-0.7); EOS % 1.5 % (0.0-4.0); HEMOGLOBIN 14.1 g/dL (12.0-18.0); LYMPH # 1.4 K/uL (1.0-4.3); LYMPH % 18.7 % (20.0-40.0); MEAN CORPUSCULAR HEMOGLOBIN 28.9 pg (27.0-31.0); MEAN CORPUSCULAR HGB CONC 34.9 g/dL (33.0-37.0); MEAN PLATELET VOLUME 11.4 fl (7.2-11.7); MONO # 0.8 K/uL (0.0-0.8); NEUT # 5.2 K/uL (1.8-7.0); NEUT % 68.4 % (50.0-75.0); NRBC % 0.1 % (0.0-0.0); RBC 4.86 Mil/uL (4.40-5.90); RED CELL DISTRIBUTION WIDTH 13.9 % (11.5-14.5); WHITE BLOOD COUNT 7.6 K/uL (4.8-10.8)
[2017-10-08 07:16] LABS: BLOOD UREA NITROGEN 7 mg/dl (9-20); CALCIUM 8.5 mg/dL (8.4-10.2); GFR AFRICAN-AMERICAN > 60; GFR NON-AFRICAN AMERICAN > 60
[2017-10-08] MEDS: Potassium Chl 20 mEq in NS 1,000 ML IV SCH (07:42)
[2017-10-08] MEDS: Insulin Regular 100 units/ml SC SCH ×4 (07:42→22:04)
[2017-10-08] MEDS: Lactobacillus Acidophilus 500 MU Cap PO SCH ×2 (09:24→16:51)
[2017-10-08] MEDS: GlipiZIDE 5 mg SR Tab PO SCH (09:26)
[2017-10-08] MEDS: Potassium Chloride 20 mEq ER Tab PO SCH (09:27)
[2017-10-08] MEDS: Pantoprazole 40 mg EC Tab PO SCH (09:28)
[2017-10-08] MEDS: Metoprolol Succinate 25 mg XL Tab PO SCH (09:29)
[2017-10-08] MEDS ORDERED: Insulin Detemir 100 Units/ml Inj SC SCH (15:05)
--- NOTE | 2017-10-08 15:08 | CP.PCM.PN ---
Subjective - Date & Time of Evaluation Date of Evaluation: 10/08/17 Time of Evaluation: 15:09 - Subjective Subjective: Still symptomatic with electrolytes imbalance. Shigella resistant on isolation. Continue present rx Objective - Vital Signs/Intake and Output Vital Signs (last 24 hours): Temp Pulse Resp BP Pulse Ox 97.9 F 83 18 133/80 98 10/08/17 12:16 10/08/17 12:16 10/08/17 12:16 10/08/17 12:16 10/08/17 12:16 - Medications Medications: Current Medications Acetaminophen (Tylenol 325mg Tab) 650 mg PO Q4 PRN PRN Reason: Fever >100.4 F Acetaminophen (Tylenol 325mg Tab) 650 mg PO Q6 PRN PRN Reason: Temperature Amlodipine Besylate (Norvasc) 10 mg PO DAILY [facility] Last Admin: 10/08/17 09:28 Dose: 10 mg Aspirin (Aspirin Chewable) 81 mg PO DAILY [facility] Last Admin: 10/08/17 09:23 Dose: 81 mg Atorvastatin Calcium (Lipitor) 40 mg PO DAILY [facility] Last Admin: 10/08/17 09:27 Dose: 40 mg Glipizide (Glucotrol Xl) 5 mg PO BRK [facility] Last Admin: 10/08/17 09:26 Dose: 5 mg Home Med (Ropinirole Hydrochloride [Ropinirole Hydrochloride]) 0.5 mg PO HS [facility] Last Admin: 10/07/17 22:24 Dose: 0.5 mg Metronidazole (Flagyl 500mg/100ml Ns) 100 mls @ 100 mls/hr IVPB Q8 [facility] PRN Reason: Protocol Last Admin: 10/08/17 09:26 Dose: 100 mls/hr Ceftriaxone Sodium 1 gm/ (Sodium Chloride) 100 mls @ 100 mls/hr IVPB DAILY [facility] PRN Reason: Protocol Last Admin: 10/08/17 09:31 Dose: 100 mls/hr Insulin Detemir (Levemir) 18 units SC HS [facility] Insulin Human Regular (Humulin R) 0 units SC ACHS [facility] PRN Reason: Protocol Last Admin: 10/08/17 13:00 Dose: 4 u Lactobacillus Acidophilus (Bacid Acidophilus) 1 cap PO BID [facility] Last Admin: 10/08/17 09:24 Dose: 1 cap Lisinopril (Zestril) 20 mg PO DAILY [facility] Last Admin: 10/08/17 09:29 Dose: 20 mg Metoprolol Succinate (Toprol Xl) 25 mg PO DAILY [facility] Last Admin: 10/08/17 09:29 Dose: 25 mg Pantoprazole Sodium (Protonix Ec Tab) 40 mg PO DAILY [facility] Last Admin: 10/08/17 09:28 Dose: 40 mg Potassium Chloride (K-Dur 20 Meq Er Tab) 40 meq PO DAILY [facility] Last Admin: 10/08/17 09:27 Dose: 40 meq Rivastigmine (Exelon 4.6 Mg/24 Hr Patch) 1 patch TD DAILY [facility] Last Admin: 10/08/17 09:24 Dose: 1 patch - Labs Labs: 10/08/17 06:54 10/08/17 06:54 - Constitutional Appears: Chronically Ill - Head Exam Head Exam: ATRAUMATIC, NORMAL INSPECTION, NORMOCEPHALIC - Eye Exam Eye Exam: Normal appearance - ENT Exam ENT Exam: Mucous Membranes Dry - Neck Exam Neck Exam: Full ROM - Respiratory Exam Respiratory Exam: Clear to Ausculation Bilateral - Cardiovascular Exam Cardiovascular Exam: REGULAR RHYTHM, +S1, +S2 - GI/Abdominal Exam GI & Abdominal Exam: Hypoactive Bowel Sounds - Neurological Exam Neurological Exam: Alert, Awake, Normal Gait - Psychiatric Exam Psychiatric exam: Normal Affect - Skin Skin Exam: Normal Color Assessment and Plan (1) Dehydration Status: Acute (2) Coronary atherosclerosis Status: Chronic (3) Hypertensive cardiovascular disease Status: Chronic (4) High anion gap metabolic acidosis Status: Acute (5) Hyperglycemia due to type 2 diabetes mellitus Status: Acute (6) Colitis Status: Acute (7) Hyperglycemia due to type 2 diabetes mellitus Status: Acute (8) Sepsis Status: Acute (9) Tachyarrhythmia Status: Acute (10) Leukopenia Status: Resolved (11) Shigella enteritis Status: Acute - Assessment and Plan (Free Text) Plan: Continue present rx. On enteric isolation.
[2017-10-08] MEDS: KCL 40MEQ/NS 1L 1,000 ML IV SCH (16:52)
[2017-10-08 19:20] LABS: BLOOD UREA NITROGEN 7 mg/dl (9-20); CALCIUM 8.6 mg/dL (8.4-10.2); GFR AFRICAN-AMERICAN > 60; GFR NON-AFRICAN AMERICAN > 60
[2017-10-08] MEDS: ROPINIROLE HYDROCHLORIDE 0.5 MG PO SCH (22:00)
[2017-10-09] MEDS: metroNIDAZOLE 500mg/100ml NS 100 ML IVPB SCH ×3 (01:11→17:29)
[2017-10-09] MEDS: KCL 40MEQ/NS 1L 1,000 ML IV SCH ×2 (03:25→13:09)
[2017-10-09] MEDS: Insulin Regular 100 units/ml SC SCH ×4 (06:46→22:51)
[2017-10-09] MEDS: Metoprolol Succinate 25 mg XL Tab PO SCH (09:21)
[2017-10-09] MEDS: Potassium Chloride 20 mEq ER Tab PO SCH (09:21)
[2017-10-09] MEDS: GlipiZIDE 5 mg SR Tab PO SCH (09:25)
[2017-10-09] MEDS: Pantoprazole 40 mg EC Tab PO SCH (09:27)
[2017-10-09] MEDS: Lactobacillus Acidophilus 500 MU Cap PO SCH ×2 (09:29→17:26)
[2017-10-09 11:52] LABS: BLOOD UREA NITROGEN 5 mg/dl (9-20); CALCIUM 8.3 mg/dL (8.4-10.2); GFR AFRICAN-AMERICAN > 60; GFR NON-AFRICAN AMERICAN > 60
--- NOTE | 2017-10-09 12:56 | CP.PCM.PN ---
Subjective - Date & Time of Evaluation Date of Evaluation: 10/09/17 Time of Evaluation: 08:00 - Subjective Subjective: diarrhea less no fever Objective - Vital Signs/Intake and Output Vital Signs (last 24 hours): Temp Pulse Resp BP Pulse Ox 99 F 79 18 132/80 97 10/09/17 12:08 10/09/17 12:08 10/09/17 12:08 10/09/17 12:08 10/09/17 12:08 - Medications Medications: Current Medications Acetaminophen (Tylenol 325mg Tab) 650 mg PO Q4 PRN PRN Reason: Fever >100.4 F Acetaminophen (Tylenol 325mg Tab) 650 mg PO Q6 PRN PRN Reason: Temperature Amlodipine Besylate (Norvasc) 10 mg PO DAILY [facility] Last Admin: 10/09/17 09:24 Dose: 10 mg Aspirin (Aspirin Chewable) 81 mg PO DAILY [facility] Last Admin: 10/09/17 09:24 Dose: 81 mg Atorvastatin Calcium (Lipitor) 40 mg PO DAILY [facility] Last Admin: 10/09/17 09:24 Dose: 40 mg Glipizide (Glucotrol Xl) 5 mg PO BRK [facility] Last Admin: 10/09/17 09:25 Dose: 5 mg Home Med (Ropinirole Hydrochloride [Ropinirole Hydrochloride]) 0.5 mg PO HS [facility] Last Admin: 10/08/17 22:00 Dose: 0.5 mg Metronidazole (Flagyl 500mg/100ml Ns) 100 mls @ 100 mls/hr IVPB Q8 [facility] PRN Reason: Protocol Last Admin: 10/09/17 09:25 Dose: 100 mls/hr Ceftriaxone Sodium 1 gm/ (Sodium Chloride) 100 mls @ 100 mls/hr IVPB DAILY [facility] PRN Reason: Protocol Last Admin: 10/09/17 09:26 Dose: 100 mls/hr Oral Electrolytes (Kcl 40meq/ 0.9% 1l) 1,000 mls @ 100 mls/hr IV .Q10H [facility] Last Admin: 10/09/17 03:25 Dose: 100 mls/hr Insulin Detemir (Levemir) 18 units SC HS [facility] Last Admin: 10/08/17 22:00 Dose: 18 units Insulin Human Regular (Humulin R) 0 units SC ACHS [facility] PRN Reason: Protocol Last Admin: 08/08/18 06:46 Dose: Not Given Lactobacillus Acidophilus (Bacid Acidophilus) 1 cap PO BID [facility] Last Admin: 10/09/17 09:29 Dose: 1 cap Lisinopril (Zestril) 20 mg PO DAILY [facility] Last Admin: 10/09/17 09:28 Dose: 20 mg Metoprolol Succinate (Toprol Xl) 25 mg PO DAILY [facility] Last Admin: 10/09/17 09:21 Dose: 25 mg Pantoprazole Sodium (Protonix Ec Tab) 40 mg PO DAILY [facility] Last Admin: 10/09/17 09:27 Dose: 40 mg Potassium Chloride (K-Dur 20 Meq Er Tab) 40 meq PO DAILY [facility] Last Admin: 10/09/17 09:21 Dose: 40 meq Rivastigmine (Exelon 4.6 Mg/24 Hr Patch) 1 patch TD DAILY [facility] Last Admin: 10/09/17 09:25 Dose: 1 patch - Labs Labs: 10/08/17 06:54 10/09/17 11:36 - Constitutional Appears: Non-toxic, Chronically Ill - Head Exam Head Exam: NORMOCEPHALIC - Eye Exam Eye Exam: absent: Scleral icterus - ENT Exam ENT Exam: Mucous Membranes Dry - Neck Exam Neck Exam: absent: Lymphadenopathy - Respiratory Exam Respiratory Exam: Decreased Breath Sounds, Clear to Ausculation Bilateral - Cardiovascular Exam Cardiovascular Exam: REGULAR RHYTHM - GI/Abdominal Exam GI & Abdominal Exam: Distended, Soft Assessment and Plan (1) Colitis Status: Acute (2) Dehydration Status: Acute (3) Sepsis Status: Acute
[2017-10-09] MEDS ORDERED: Potassium Chloride 20 mEq ER Tab PO ONE (13:27)
--- NOTE | 2017-10-09 13:31 | CP.PCM.PN ---
Subjective - Date & Time of Evaluation Date of Evaluation: 10/09/17 Time of Evaluation: 13:31 - Subjective Subjective: Improving well on present rx, +diarrhea. Objective - Vital Signs/Intake and Output Vital Signs (last 24 hours): Temp Pulse Resp BP Pulse Ox 99 F 79 18 132/80 97 10/09/17 12:08 10/09/17 12:08 10/09/17 12:08 10/09/17 12:08 10/09/17 12:08 - Medications Medications: Current Medications Acetaminophen (Tylenol 325mg Tab) 650 mg PO Q4 PRN PRN Reason: Fever >100.4 F Acetaminophen (Tylenol 325mg Tab) 650 mg PO Q6 PRN PRN Reason: Temperature Amlodipine Besylate (Norvasc) 10 mg PO DAILY [facility] Last Admin: 10/09/17 09:24 Dose: 10 mg Aspirin (Aspirin Chewable) 81 mg PO DAILY [facility] Last Admin: 10/09/17 09:24 Dose: 81 mg Atorvastatin Calcium (Lipitor) 40 mg PO DAILY [facility] Last Admin: 10/09/17 09:24 Dose: 40 mg Glipizide (Glucotrol Xl) 5 mg PO BRK [facility] Last Admin: 10/09/17 09:25 Dose: 5 mg Home Med (Ropinirole Hydrochloride [Ropinirole Hydrochloride]) 0.5 mg PO HS [facility] Last Admin: 10/08/17 22:00 Dose: 0.5 mg Metronidazole (Flagyl 500mg/100ml Ns) 100 mls @ 100 mls/hr IVPB Q8 [facility] PRN Reason: Protocol Last Admin: 10/09/17 09:25 Dose: 100 mls/hr Ceftriaxone Sodium 1 gm/ (Sodium Chloride) 100 mls @ 100 mls/hr IVPB DAILY [facility] PRN Reason: Protocol Last Admin: 10/09/17 09:26 Dose: 100 mls/hr Oral Electrolytes (Kcl 40meq/ 0.9% 1l) 1,000 mls @ 100 mls/hr IV .Q10H [facility] Last Admin: 10/09/17 13:09 Dose: 100 mls/hr Insulin Detemir (Levemir) 20 units SC HS [facility] Insulin Human Regular (Humulin R) 0 units SC ACHS [facility] PRN Reason: Protocol Last Admin: 10/09/17 13:12 Dose: Not Given Lactobacillus Acidophilus (Bacid Acidophilus) 1 cap PO BID [facility] Last Admin: 10/09/17 09:29 Dose: 1 cap Lisinopril (Zestril) 20 mg PO DAILY [facility] Last Admin: 10/09/17 09:28 Dose: 20 mg Metoprolol Succinate (Toprol Xl) 25 mg PO DAILY [facility] Last Admin: 10/09/17 09:21 Dose: 25 mg Pantoprazole Sodium (Protonix Ec Tab) 40 mg PO DAILY [facility] Last Admin: 10/09/17 09:27 Dose: 40 mg Potassium Chloride (K-Dur 20 Meq Er Tab) 40 meq PO DAILY [facility] Last Admin: 10/09/17 09:21 Dose: 40 meq Potassium Chloride (K-Dur 20 Meq Er Tab) 40 meq PO ONCE ONE Stop: 10/09/17 13:28 Rivastigmine (Exelon 4.6 Mg/24 Hr Patch) 1 patch TD DAILY [facility] Last Admin: 10/09/17 09:25 Dose: 1 patch - Labs Labs: 10/08/17 06:54 10/09/17 11:36 - Constitutional Appears: Chronically Ill - Head Exam Head Exam: ATRAUMATIC, NORMAL INSPECTION, NORMOCEPHALIC - Eye Exam Eye Exam: Normal appearance - Neck Exam Neck Exam: Full ROM - Respiratory Exam Respiratory Exam: Clear to Ausculation Bilateral - Cardiovascular Exam Cardiovascular Exam: REGULAR RHYTHM - GI/Abdominal Exam GI & Abdominal Exam: Hypoactive Bowel Sounds - Extremities Exam Extremities Exam: Normal Inspection - Neurological Exam Neurological Exam: Alert, Awake, Oriented x3 - Psychiatric Exam Psychiatric exam: Normal Affect - Skin Skin Exam: Normal Color Assessment and Plan (1) Dehydration Status: Acute (2) Coronary atherosclerosis Status: Chronic (3) Hypertensive cardiovascular disease Status: Chronic (4) High anion gap metabolic acidosis Status: Acute (5) Hyperglycemia due to type 2 diabetes mellitus Status: Acute (6) Colitis Status: Acute (7) Hyperglycemia due to type 2 diabetes mellitus Status: Acute (8) Sepsis Status: Acute (9) Tachyarrhythmia Status: Acute (10) Leukopenia Status: Resolved (11) Shigella enteritis Status: Acute - Assessment and Plan (Free Text) Plan: Continue present rx.
[2017-10-09] MEDS: ROPINIROLE HYDROCHLORIDE 0.5 MG PO SCH (22:44)
[2017-10-09] MEDS: Insulin Detemir 100 Units/ml Inj SC SCH (22:51)
[2017-10-10] MEDS: metroNIDAZOLE 500mg/100ml NS 100 ML IVPB SCH ×3 (00:33→17:47)
[2017-10-10 07:27] LABS: BLOOD UREA NITROGEN 9 mg/dl (9-20); CALCIUM 9.5 mg/dL (8.4-10.2); GFR AFRICAN-AMERICAN > 60; GFR NON-AFRICAN AMERICAN > 60
[2017-10-10] MEDS: GlipiZIDE 5 mg SR Tab PO SCH (09:32)
[2017-10-10] MEDS: Metoprolol Succinate 25 mg XL Tab PO SCH (09:32)
[2017-10-10] MEDS: Pantoprazole 40 mg EC Tab PO SCH (09:33)
[2017-10-10] MEDS: Lactobacillus Acidophilus 500 MU Cap PO SCH ×2 (09:34→17:44)
[2017-10-10] MEDS: Insulin Regular 100 units/ml SC SCH ×4 (09:35→21:23)
[2017-10-10] MEDS: KCL 40MEQ/NS 1L 1,000 ML IV SCH ×2 (09:37→12:30)
--- NOTE | 2017-10-10 13:00 | CP.PCM.PN ---
Subjective - Date & Time of Evaluation Date of Evaluation: 10/10/17 Time of Evaluation: 13:00 - Subjective Subjective: Improving, no new chances. Objective - Vital Signs/Intake and Output Vital Signs (last 24 hours): Temp Pulse Resp BP Pulse Ox 98 F 75 18 98/64 L 98 10/10/17 12:29 10/10/17 12:29 10/10/17 12:29 10/10/17 12:29 10/10/17 12:29 - Medications Medications: Current Medications Acetaminophen (Tylenol 325mg Tab) 650 mg PO Q4 PRN PRN Reason: Fever >100.4 F Acetaminophen (Tylenol 325mg Tab) 650 mg PO Q6 PRN PRN Reason: Temperature Amlodipine Besylate (Norvasc) 10 mg PO DAILY [facility] Last Admin: 10/10/17 09:32 Dose: 10 mg Aspirin (Aspirin Chewable) 81 mg PO DAILY [facility] Last Admin: 10/10/17 09:32 Dose: 81 mg Atorvastatin Calcium (Lipitor) 40 mg PO DAILY [facility] Last Admin: 10/10/17 09:32 Dose: 40 mg Glipizide (Glucotrol Xl) 5 mg PO BRK [facility] Last Admin: 10/10/17 09:32 Dose: 5 mg Home Med (Ropinirole Hydrochloride [Ropinirole Hydrochloride]) 0.5 mg PO HS [facility] Last Admin: 10/09/17 22:44 Dose: 0.5 mg Metronidazole (Flagyl 500mg/100ml Ns) 100 mls @ 100 mls/hr IVPB Q8 [facility] PRN Reason: Protocol Last Admin: 10/10/17 09:31 Dose: 100 mls/hr Ceftriaxone Sodium 1 gm/ (Sodium Chloride) 100 mls @ 100 mls/hr IVPB DAILY [facility] PRN Reason: Protocol Last Admin: 10/10/17 09:35 Dose: 100 mls/hr Oral Electrolytes (Kcl 40meq/ 0.9% 1l) 1,000 mls @ 85 mls/hr IV .[id number] [facility] Last Admin: 10/10/17 09:37 Dose: Not Given Insulin Detemir (Levemir) 20 units SC HS [facility] Last Admin: 10/09/17 22:51 Dose: 20 units Insulin Human Regular (Humulin R) 0 units SC ACHS [facility] PRN Reason: Protocol Last Admin: 10/10/17 09:35 Dose: Not Given Lactobacillus Acidophilus (Bacid Acidophilus) 1 cap PO BID [facility] Last Admin: 10/10/17 09:34 Dose: 1 cap Lisinopril (Zestril) 20 mg PO DAILY [facility] Last Admin: 10/10/17 09:33 Dose: 20 mg Metoprolol Succinate (Toprol Xl) 25 mg PO DAILY [facility] Last Admin: 10/10/17 09:32 Dose: 25 mg Pantoprazole Sodium (Protonix Ec Tab) 40 mg PO DAILY [facility] Last Admin: 10/10/17 09:33 Dose: 40 mg Rivastigmine (Exelon 4.6 Mg/24 Hr Patch) 1 patch TD DAILY [facility] Last Admin: 10/10/17 09:33 Dose: 1 patch - Labs Labs: 10/08/17 06:54 10/10/17 05:30 - Constitutional Appears: Chronically Ill - Head Exam Head Exam: ATRAUMATIC, NORMAL INSPECTION, NORMOCEPHALIC - Eye Exam Eye Exam: Normal appearance - Neck Exam Neck Exam: Full ROM - Respiratory Exam Respiratory Exam: Clear to Ausculation Bilateral - Cardiovascular Exam Cardiovascular Exam: REGULAR RHYTHM, +S1, +S2 - GI/Abdominal Exam GI & Abdominal Exam: Hypoactive Bowel Sounds - Rectal Exam Rectal Exam: NORMAL INSPECTION - Extremities Exam Extremities Exam: Normal Inspection - Neurological Exam Neurological Exam: Alert, Awake, Oriented x3 - Psychiatric Exam Psychiatric exam: Normal Affect - Skin Skin Exam: Normal Color Assessment and Plan (1) Dehydration Status: Acute (2) Coronary atherosclerosis Status: Chronic (3) Hypertensive cardiovascular disease Status: Chronic (4) High anion gap metabolic acidosis Status: Acute (5) Hyperglycemia due to type 2 diabetes mellitus Status: Acute (6) Colitis Status: Acute (7) Hyperglycemia due to type 2 diabetes mellitus Status: Acute (8) Sepsis Status: Acute (9) Tachyarrhythmia Status: Acute (10) Leukopenia Status: Resolved (11) Shigella enteritis Status: Acute - Assessment and Plan (Free Text) Plan: Continue present rx if stable will dc in am.
[2017-10-10] MEDS: Insulin Detemir 100 Units/ml Inj SC SCH (21:23)
[2017-10-10] MEDS: ROPINIROLE HYDROCHLORIDE 0.5 MG PO SCH (21:24)
[2017-10-11 00:06] VITALS: RESP 18
[2017-10-11] MEDS: metroNIDAZOLE 500mg/100ml NS 100 ML IVPB SCH ×2 (01:39→09:35)
[2017-10-11 06:36] LABS: BASO % 0.5 % (0.0-2.0); EOS # 0.2 K/uL (0.0-0.7); EOS % 2.9 % (0.0-4.0); HEMOGLOBIN 14.4 g/dL (12.0-18.0); LYMPH # 2.3 K/uL (1.0-4.3); LYMPH % 27.3 % (20.0-40.0); MEAN CELL VOLUME 82.9 fl (80.0-94.0); MEAN CORPUSCULAR HEMOGLOBIN 29.1 pg (27.0-31.0); MEAN CORPUSCULAR HGB CONC 35.1 g/dL (33.0-37.0); MEAN PLATELET VOLUME 9.4 fl (7.2-11.7); MONO # 0.8 K/uL (0.0-0.8); MONO % 9.8 % (0.0-10.0); NEUT # 5.1 K/uL (1.8-7.0); NEUT % 59.5 % (50.0-75.0); NRBC % 0.1 % (0.0-0.0); RBC 4.96 Mil/uL (4.40-5.90); RED CELL DISTRIBUTION WIDTH 13.5 % (11.5-14.5); WHITE BLOOD COUNT 8.5 K/uL (4.8-10.8)
[2017-10-11 06:57] LABS: BLOOD UREA NITROGEN 9 mg/dl (9-20); CALCIUM 9.1 mg/dL (8.4-10.2); GFR AFRICAN-AMERICAN > 60; GFR NON-AFRICAN AMERICAN > 60
--- NOTE | 2017-10-11 07:29 | CON ---
Copied To: Lonnie Randolhp MD Attending MD: Lonnie Randolph MD DATE: Consultation is for Dr. Vinny Mitchell. HISTORY OF PRESENT ILLNESS: The patient is a 57-year-old male with history of diabetes mellitus, hypertension, hyperlipidemia, coronary artery disease, status post coronary artery bypass graft, admitted with several days history of lower abdominal cramping pain with watery diarrhea. Workup showed the patient had contracted shigella enterocolitis and patient was placed on IV antibiotics. Patient is doing well, has been diarrhea free for 24 hours. At present, denies fever, chills, nausea, vomiting, or blood in the stool. PAST MEDICAL HISTORY: As stated before. PAST SURGICAL HISTORY: As stated before. REVIEW OF SYSTEMS: As per history of present illness. All other systems reviewed are negative. SOCIAL HISTORY: Does not smoke. Does not drink. FAMILY HISTORY: Noncontributory. LABORATORY DATA: Labs are reviewed. MEDICATIONS: Meds reviewed as per MAY. PHYSICAL EXAMINATION GENERAL: He is awake and alert, in no apparent distress. VITAL SIGNS: Stable. HEENT: He is normocephalic, atraumatic. Extraocular muscles intact. Pupils are equal and reactive to light and accommodation. No JVD. No neck masses. HEART: Auscultation of the heart S1 and S2 without murmur or gallop. LUNGS: Clear. ABDOMEN: Soft and nontender. Bowel sounds are positive. There are no masses. No hepatosplenomegaly. No guarding. No rebound. EXTREMITIES: No edema, cyanosis, or clubbing. RECTAL: Deferred. NEUROLOGIC: Cranial nerves II through XII are intact. There are no focal or sensory deficit. IMPRESSION: Shigella enterocolitis. PLAN: Agree with present management. Discharge plan as per PMD. Patient will be discharged in a.m. Screen for colon cancer should be done as patient has never had a colonoscopy done. Patient advised to contact my office upon discharge to schedule screening colonoscopy. Thank you for allowing me to participate in the care of your patient. We will follow with you. Lonnie Randolph MD [facility] # [id number]
[2017-10-11] MEDS: Insulin Regular 100 units/ml SC SCH ×2 (07:30→12:53)
[2017-10-11 08:19] VITALS: TEMP 98.4; O2SAT 100
[2017-10-11] MEDS: GlipiZIDE 5 mg SR Tab PO SCH (09:36)
[2017-10-11] MEDS: KCL 40MEQ/NS 1L 1,000 ML IV SCH (09:36)
[2017-10-11] MEDS: Pantoprazole 40 mg EC Tab PO SCH (09:37)
[2017-10-11] MEDS: Metoprolol Succinate 25 mg XL Tab PO SCH (09:40)
[2017-10-11] MEDS: Lactobacillus Acidophilus 500 MU Cap PO SCH (09:53)
--- NOTE | 2017-10-11 12:03 | CP.PCM.DIS ---
Provider - Provider Date of Admission: 10/04/17 21:41 Attending physician: Vinny Mitchell MD Primary care physician: Vinny Mitchell MD Time Spent in preparation of Discharge (in minutes): 30 Diagnosis - Discharge Diagnosis (1) Dehydration Status: Resolved (2) Coronary atherosclerosis Status: Chronic (3) Hypertensive cardiovascular disease Status: Chronic (4) High anion gap metabolic acidosis Status: Resolved (5) Hyperglycemia due to type 2 diabetes mellitus Status: Acute (6) Colitis Status: Acute (7) Hyperglycemia due to type 2 diabetes mellitus Status: Acute (8) Sepsis Status: Resolved (9) Tachyarrhythmia Status: Resolved (10) Leukopenia Status: Resolved (11) Shigella enteritis Status: Resolved Hospital Course - Lab Results Lab Results: Micro Results 10/04/17 11:40 Stool Stool Culture - Final Shigella Sonnei 10/04/17 20:15 Blood-Venous Blood Culture - Final NO GROWTH AFTER 5 DAYS 10/04/17 20:15 Blood-Venous Gram Stain - Final TEST NOT PERFORMED 10/04/17 20:00 Blood-Venous Blood Culture - Final NO GROWTH AFTER 5 DAYS 10/04/17 20:00 Blood-Venous Gram Stain - Final TEST NOT PERFORMED 10/06/17 10:41 Naris MRSA Culture (Admit) - Final MRSA NOT DETECTED 10/05/17 18:35 Stool Stool Culture - Final NO SALMONELLA, SHIGELLA OR CAMPYLOBACTER ISOLATED. 10/05/17 18:35 Stool Ova and Parasite Concentrate Exam - Final 10/04/17 11:40 Stool Ova and Parasite Concentrate Exam - Final 10/04/17 22:46 Urine,Clean Catch Urine Culture - Final No Growth (<1,000 CFU/ML) 10/05/17 06:37 Naris MRSA Culture (Admit) - Final MRSA NOT DETECTED Most Recent Lab Values WBC 8.5 K/uL (4.8-10.8) 10/11/17 05:40 RBC 4.96 Mil/uL (4.40-5.90) 10/11/17 05:40 Hgb 14.4 g/dL (12.0-18.0) 10/11/17 05:40 Hct 41.1 % (35.0-51.0) 10/11/17 05:40 MCV 82.9 fl (80.0-94.0) 10/11/17 05:40 MCH 29.1 pg (27.0-31.0) 10/11/17 05:40 MCHC 35.1 g/dL (33.0-37.0) 10/11/17 05:40 RDW 13.5 % (11.5-14.5) 10/11/17 05:40 Plt Count 343 K/uL (130-400) D 10/11/17 05:40 MPV 9.4 fl (7.2-11.7) 10/11/17 05:40 Neut % (Auto) 59.5 % (50.0-75.0) 10/11/17 05:40 Lymph % (Auto) 27.3 % (20.0-40.0) 10/11/17 05:40 [place] % (Auto) 9.8 % (0.0-10.0) 10/11/17 05:40 Eos % (Auto) 2.9 % (0.0-4.0) 10/11/17 05:40 Baso % (Auto) 0.5 % (0.0-2.0) 10/11/17 05:40 Neut # (Auto) 5.1 K/uL (1.8-7.0) 10/11/17 05:40 Lymph # (Auto) 2.3 K/uL (1.0-4.3) 10/11/17 05:40 [place] # (Auto) 0.8 K/uL (0.0-0.8) 10/11/17 05:40 Eos # (Auto) 0.2 K/uL (0.0-0.7) 10/11/17 05:40 Baso # (Auto) 0.0 K/uL (0.0-0.2) 10/11/17 05:40 Neutrophils % (Manual) 74 % (42-75) 10/04/17 20:00 Band Neutrophils % 8 % (0-2) H 10/04/17 20:00 Lymphocytes % (Manual) 10 % (20-50) L 10/04/17 20:00 Monocytes % (Manual) 8 % (0-10) 10/04/17 20:00 Platelet Estimate Normal (NORMAL) 10/04/17 20:00 Hypochromasia (manual) Slight 10/04/17 20:00 Microcytosis (manual) Slight 10/04/17 20: pCO2 30 mm/Hg (35-45) L 10/04/17 20: pO2 20 mm/Hg (30-55) L 10/04/17 23: HCO3 21.3 mmol/L (21-28) 10/04/17: ABG pH 7.41 (7.35-7.45) 10/04/17: ABG Total CO2 19.9 mmol/L (22-28) L 10/04/17 ABG O2 Saturation 96.0 % (95-98) 10/04/17 ABG O2 Content 18.0 ML/dL (15-23) 10/04/17 ABG Base Excess -4.4 mmol/L (-2.0-3.0) L 10/04/17 ABG Hemoglobin 14.1 g/dL (11.7-17.4) 10/04/17 ABG Carboxyhemoglobin 2.7 % (0.5-1.5) H 10/04/17: POC ABG HHb (Measured) 3.8 % (0.0-5.0) 10/04/17 ABG Methemoglobin 2.9 % (0.0-3.0) 10/04/17 ABG O2 Capacity 18.8 mL/dL (16-24) 10/04/17: [place] Test Yes 10/04/17: VBG pH 7.38 (7.32-7.43) 10/04/17 23: VBG pCO2 36 mmHg (40-60) L 10/04/17 23: VBG HCO3 20.9 mmol/L 10/04/17 23: VBG Total CO2 22.4 mmol/L (22-28) 10/04/17: VBG O2 Sat (Calc) 44.3 % (40-65) 10/04/17: VBG Base Excess -3.3 mmol/L (0.0-2.0) L 10/04/17: VBG Potassium 3.4 mmol/L (3.6-5.2) L 10/04/17 23: A-a O2 Difference 50.0 mm/Hg 10/04/17 20:28 Hgb O2 Saturation 90.6 % (95.0-98.0) L 10/04/17 20:28 Sodium 135.0 mmol/L (132-148) 10/04/17 23:01 Chloride 101.0 mmol/L (98-107) 10/04/17 23:01 Glucose 287 mg/dL (75-110) H 10/04/17 23:01 Lactate 4.4 mmol/L (0.7-2.1) H* 10/04/17 23:01 Vent Mode Room air 10/04/17 20:28 FiO2 21.0 % 10/04/17 23:01 Crit Value Called To Dr kenyetta saenz 10/04/17 23:01 Crit Value Called By Juan Alberto 10/04/17 23:01 Crit Value Read Back Y 10/04/17 23:01 Blood Gas Notified Time 2317 10/04/17 23:01 Sodium 140 mmol/l (132-148) 10/11/17 05:40 Potassium 3.8 MMOL/L (3.6-5.0) 10/11/17 05:40 Chloride 102 mmol/L (98-107) 10/11/17 05:40 Carbon Dioxide 29 mmol/L (22-30) 10/11/17 05:40 Anion Gap 13 (10-20) 10/11/17 05:40 BUN 9 mg/dl (9-20) 10/11/17 05:40 Creatinine 0.9 mg/dl (0.8-1.5) 10/11/17 05:40 Est GFR ( Amer) > 60 10/11/17 05:40 Est GFR (Non-Af Amer) > 60 10/11/17 05:40 POC Glucose (mg/dL) 192 mg/dL (65-110) H 10/11/17 11:19 Random Glucose 80 mg/dL (75-110) 10/11/17 05:40 Hemoglobin A1c 11.7 % (4.2-6.5) H 10/05/17 09:34 Lactic Acid 2.9 MMOL/L (0.7-2.1) H 10/05/17 04:12 Calcium 9.1 mg/dL (8.4-10.2) 10/11/17 05:40 Total Bilirubin 0.6 mg/dl (0.2-1.3) 10/06/17 04:40 AST 35 U/L (17-59) 10/06/17 04:40 ALT 43 U/L (21-72) 10/06/17 04:40 Alkaline Phosphatase 58 U/L (38-126) 10/06/17 04:40 Total Protein 5.2 G/DL (6.3-8.2) L 10/06/17 04:40 Albumin 2.7 g/dL (3.5-5.0) L D 10/06/17 04:40 Globulin 2.5 gm/dL (2.2-3.9) 10/06/17 04:40 Albumin/Globulin Ratio 1.1 (1.0-2.1) 10/06/17 04:40 Lipase 31 U/L (23-300) 10/04/17 20:00 Procalcitonin 1.00 NG/ML (0.19-0.49) H 10/08/17 04:20 Venous Blood Potassium 3.4 mmol/L (3.6-5.2) L 10/04/17 23:01 Stool Leukocytes, Qual Negative (NEGATIVE) 10/07/17 06:00 C. difficile Ag & Toxin Negative (NEGATIVE) 10/05/17 Unknown Hepatitis A IgM Ab Negative (NEGATIVE) 10/05/17 13:10 Hep Bs Antigen Negative (NEGATIVE) 10/05/17 13:10 Hep B Core IgM Ab Negative (NEGATIVE) 10/05/17 13:10 Hepatitis C Antibody Negative (NEGATIVE) 10/05/17 13:10 HIV 1&2 Antibody Screen Negative (NEGATIVE) 10/06/17 04:40 - Hospital Course Hospital Course: 57 y/o gentleman with hx of CAD, DM2, HTN presented in ER with presyncope, severe weakness and severe diarrhea no melena, no hematochezia x 2 days. He presented with severe dehydration, tachycardia, BG >600, persistent fever with Tmax 103.5, leukopenia, increased anion GAP and BUN. Stool culture were positive for shigella. Patient during the hospitalization had a persistent diarrhea requiring electrocutes replacement and intense ivf rx. He presented with an uncontrolled DM and HbA1c >than 11. At present comfortable will dc home with f/u with GI for colonoscopy. Dep of Health was informed of his pathology. Discharge Exam - Head Exam Head Exam: ATRAUMATIC, NORMAL INSPECTION, NORMOCEPHALIC - Eye Exam Eye Exam: Normal appearance - ENT Exam ENT Exam: Mucous Membranes Dry - Respiratory Exam Respiratory Exam: Clear to PA & Lateral - Cardiovascular Exam Cardiovascular Exam: REGULAR RHYTHM, +S1, +S2 - GI/Abdominal Exam GI & Abdominal Exam: Normal Bowel Sounds - Extremities Exam Extremities exam: normal inspection - Neurological Exam Neurological exam: Alert, CN II-XII Intact, Normal Gait, Oriented x3, Reflexes Normal - Psychiatric Exam Psychiatric exam: Normal Affect - Skin Skin Exam: Normal Color Discharge Plan - Follow Up Plan Condition: CRITICAL Disposition: HOME/ ROUTINE Referrals: Vinny Mitchell MD [Primary Care Provider] -
--- NOTE | 2017-10-11 12:10 | CP.PCM.PN ---
Subjective - Date & Time of Evaluation Date of Evaluation: 10/11/17 Time of Evaluation: 10:00 - Subjective Subjective: improving ion IV rx for follow up as out pt Objective - Vital Signs/Intake and Output Vital Signs (last 24 hours): Temp Pulse Resp BP Pulse Ox 98.4 F 78 18 115/73 100 10/11/17 08:18 10/11/17 09:40 10/11/17 08:18 10/11/17 09:40 10/11/17 08:18 - Medications Medications: Current Medications Acetaminophen (Tylenol 325mg Tab) 650 mg PO Q4 PRN PRN Reason: Fever >100.4 F Acetaminophen (Tylenol 325mg Tab) 650 mg PO Q6 PRN PRN Reason: Temperature Amlodipine Besylate (Norvasc) 10 mg PO DAILY [facility] Aspirin (Aspirin Chewable) 81 mg PO DAILY [facility] Last Admin: 10/11/17 09:34 Dose: 81 mg Atorvastatin Calcium (Lipitor) 40 mg PO DAILY [facility] Last Admin: 10/11/17 09:37 Dose: 40 mg Glipizide (Glucotrol Xl) 5 mg PO BRK [facility] Last Admin: 10/11/17 09:36 Dose: 5 mg Home Med (Ropinirole Hydrochloride [Ropinirole Hydrochloride]) 0.5 mg PO HS [facility] Last Admin: 10/10/17 21:24 Dose: 0.5 mg Metronidazole (Flagyl 500mg/100ml Ns) 100 mls @ 100 mls/hr IVPB Q8 JOSHUA PRN Reason: Protocol Last Admin: 10/11/17 09:35 Dose: 100 mls/hr Insulin Detemir (Levemir) 20 units SC HS [facility] Last Admin: 10/10/17 21:23 Dose: 20 units Insulin Human Regular (Humulin R) 0 units SC ACHS [facility] PRN Reason: Protocol Last Admin: 10/10/17 21:23 Dose: 4 units Lactobacillus Acidophilus (Bacid Acidophilus) 1 cap PO BID [facility] Last Admin: 10/11/17 09:53 Dose: 1 cap Lisinopril (Zestril) 20 mg PO DAILY [facility] Last Admin: 10/11/17 09:40 Dose: 20 mg Metformin HCl (Glucophage) 1,000 mg PO BIDWM [facility] Last Admin: 10/11/17 09:36 Dose: 1,000 mg Metoprolol Succinate (Toprol Xl) 25 mg PO DAILY [facility] Last Admin: 10/11/17 09:40 Dose: 25 mg Pantoprazole Sodium (Protonix Ec Tab) 40 mg PO DAILY [facility] Last Admin: 10/11/17 09:37 Dose: 40 mg Rivastigmine (Exelon 4.6 Mg/24 Hr Patch) 1 patch TD DAILY [facility] Last Admin: 10/11/17 09:34 Dose: 1 patch - Labs Labs: 10/11/17 05:40 10/11/17 05:40 Assessment and Plan (1) Colitis Status: Acute (2) Dehydration Status: Resolved (3) Sepsis Status: Resolved
[2017-10-11 12:29] VITALS: BP 103/67; PULSE 76
== END 2017-10-11 14:30 | disposition home health service (06) | DRG 584 ==
LOC: H.ER 18:40 → H.ERHOLD 21:41 → H.ICU/CCU 10-05 00:26 → H.TEL 10-06 13:39
PROVIDERS: ADMIT Internal Medicine; ATTEND Internal Medicine
DX: A41.9 Sepsis, unspecified organism (principal); R65.21 Severe sepsis with septic shock; A03.3 Shigellosis due to Shigella sonnei; E87.2 Acidosis; E11.65 Type 2 diabetes mellitus with hyperglycemia; E86.0 Dehydration; I11.9 Hypertensive heart disease without heart failure; I25.10 Atherosclerotic heart disease of native coronary artery without angina pectoris; E78.5 Hyperlipidemia, unspecified; E78.00 Pure hypercholesterolemia, unspecified; G25.81 Restless legs syndrome; G47.30 Sleep apnea, unspecified; Z95.1 Presence of aortocoronary bypass graft; Z90.49 Acquired absence of other specified parts of digestive tract; Z79.82 Long term (current) use of aspirin; Z79.899 Other long term (current) drug therapy; Z79.84 Long term (current) use of oral hypoglycemic drugs

== ENCOUNTER 2018-02-20 04:42 | Emergency (ER) | payer MEDICARE, OTHER ==
[2018-02-20 05:16] VITALS: BMI 22.9
[2018-02-20 05:19] VITALS: RESP 18; O2SAT 97
[2018-02-20 05:57] LABS: BASO # 0.1 K/uL (0.0-0.2); BASO % 0.9 % (0.0-2.0); EOS # 0.3 K/uL (0.0-0.7); EOS % 3.5 % (0.0-4.0); HEMOGLOBIN 13.8 g/dL (12.0-18.0); LYMPH # 2.3 K/uL (1.0-4.3); LYMPH % 29.6 % (20.0-40.0); MEAN CELL VOLUME 84.2 fl (80.0-94.0); MEAN CORPUSCULAR HEMOGLOBIN 28.7 pg (27.0-31.0); MEAN PLATELET VOLUME 10.3 fl (7.2-11.7); MONO # 0.5 K/uL (0.0-0.8); MONO % 6.7 % (0.0-10.0); NEUT # 4.6 K/uL (1.8-7.0); NEUT % 59.3 % (50.0-75.0); NRBC % 0.2 % (0.0-0.0); RBC 4.82 Mil/uL (4.40-5.90); RED CELL DISTRIBUTION WIDTH 13.6 % (11.5-14.5); WHITE BLOOD COUNT 7.8 K/uL (4.8-10.8)
[2018-02-20 06:06] LABS: BLOOD UREA NITROGEN 22 mg/dl (9-20); CALCIUM 8.9 mg/dL (8.4-10.2); GFR NON-AFRICAN AMERICAN > 60
[2018-02-20 06:08] LABS: URINE BILIRUBIN NEGATIVE (NEGATIVE); URINE BLOOD LARGE (NEGATIVE); URINE CLARITY CLOUDY (Clear); URINE COLOR RED (YELLOW); URINE GLUCOSE (UA) >=500 mg/dL (NEGATIVE); URINE LEUKOCYTE ESTERASE NEG Leu/uL (Negative); URINE PROTEIN 100 mg/dL (NEGATIVE)
--- NOTE | 2018-02-20 06:09 | ED PDOC ---
HPI: Male Pain Time Seen by Provider: 02/20/18 05:18 Chief Complaint (Nursing): Male Genitourinary Chief Complaint (Provider): Hematuria History Per: Patient History/Exam Limitations: no limitations Onset/Duration Of Symptoms: Days (x4) Current Symptoms Are (Timing): Still Present Additional Complaint(s): 57 year old male presents to the ED for evaluation of increasing hematuria for the last four days. He notes that initially, there was a little bit of blood, but now it has become progressively darker. Additionally, he reports not necessarily pain to his abdomen, but a sensation of emptiness which he equated to how he feels when he does not eat, despite eating normally. Patient also states that while initially he did not have pain with urination, now at the end of urinating, he has a shooting pain into his lower abdomen. He says that one year ago he was evaluated by a urologist for circumcision and told his prostate was normal. Of note, patient is followed closely by his PMD and has an appt today at 1400. Urologist: Dr. Crowder in [place] PMD: Vinny Mitchell Past Medical History Reviewed: Historical Data, Nursing Documentation, Vital Signs Vital Signs: Last Vital Signs Temp 98.6 F 02/20/18 05:00 Pulse 81 02/20/18 05:00 Resp 18 02/20/18 05:00 BP 132/82 02/20/18 05:00 Pulse Ox 97 02/20/18 05:00 - Medical History PMH: CAD, Depression, Diabetes, Gall Bladder Disease (CHOLECYSTECTOM Y 2013), HTN, Hypercholesterolemia, Sleep Apnea (C PAP) Denies: Chronic Kidney Disease - Surgical History Surgical History: CABG, Cholecystectomy, Endoscopy - Family History Family History: States: Unknown Family Hx - Social History Current smoker - smoking cessation education provided: No Alcohol: None Drugs: Denies - Home Medications Home Medications: Ambulatory Orders Medication Instructions Recorded Aspirin 81 mg PO DAILY 05/28/14 Ropinirole Hydrochloride 0.5 mg PO HS 05/28/14 Simvastatin 80 mg PO DAILY 05/28/14 Lisinopril [Zestril] 20 mg PO DAILY 09/10/16 Metoprolol Succinate XL [Toprol XL] 25 mg PO DAILY 09/10/16 Rivastigmine 4.6 mg/24 hr [Exelon 1 patch TD DAILY 09/10/16 4.6 mg/24 hr Patch] amLODIPine [Norvasc] 10 mg PO DAILY 09/10/16 GlipiZIDE SR [Glucotrol XL] 5 mg PO BRK tab 10/11/17 Insulin Detemir [Levemir] 20 units SC HS vial 10/11/17 Lactobacillus Acidophilus [Bacid 1 cap PO BID cap 10/11/17 Acidophilus] MetFORMIN [glucoPHAGE] 1,000 mg PO BIDWM tab 10/11/17 Pantoprazole [Protonix EC Tab] 40 mg PO DAILY ect 10/11/17 - Allergies Allergies/Adverse Reactions: Allergies Allergy/AdvReac Type Severity Reaction Status Date / Time No Known Allergies Allergy Verified 02/20/18 05:15 Review of Systems ROS Statement: Except As Marked, All Systems Reviewed And Found Negative Gastrointestinal: Positive for: Other (feels as if stomach is empty) Genitourinary Male: Positive for: Hematuria, Other (at end of urination, pain radiating into lower abdomen) Physical Exam - Reviewed Nursing Documentation Reviewed: Yes Vital Signs Reviewed: Yes - Physical Exam Appears: Positive for: No Acute Distress Head Exam: Positive for: ATRAUMATIC, NORMOCEPHALIC Skin: Positive for: Normal Color Eye Exam: Positive for: Normal appearance, EOMI, PERRL Cardiovascular/Chest: Positive for: Regular Rate, Rhythm Respiratory: Positive for: Normal Breath Sounds. Negative for: Respiratory Distress Gastrointestinal/Abdominal: Positive for: Normal Exam, Soft, Tenderness (mild suprapubic) Back: Positive for: Normal Inspection. Negative for: L CVA Tenderness, R CVA Tenderness Extremity: Positive for: Normal ROM. Negative for: Calf Tenderness, Swelling (upper or lower bilateral extremities) Neurologic/Psych: Positive for: Alert, Oriented (x3) - Laboratory Results Result Diagrams: 02/20/18 05:41 02/20/18 05:41 - ECG O2 Sat by Pulse Oximetry: 97 (RA) Pulse Ox Interpretation: Normal Medical Decision Making Medical Decision Making: Time: 540 Initial Impression: workup for bladder v renal pathology Initial Plan: --CT abd/pelvis --BMP --CBC with differential --Urinalysis --Reassess Time: 658 --CT ABD/pelvis findings: The liver is of uniform attenuation without mass or defect. There is no intra or extrahepatic biliary ductal dilatation. The spleen is normal. The gallbladder is surgically absent. The pancreas is of normal contour and attenuation characteristics. There is no evidence of adrenal mass. Both kidneys demonstrate prompt and equal nephrograms. The kidneys are normal in size, shape and configuration. There is no evidence of renal or ureteral mass. No renal or ureteral calculi are identified. There is no hydroureter or hydronephrosis. No evidence for appendicitis. There is no bowel wall thickening. No evidence for small or large bowel obstruction. There is no evidence of abdominal ascites or lymphadenopathy. Mild diffuse thickening of the bladder. There is no evidence of intrinsic or extrinsic bladder mass. There is no pelvic ascites or lymphadenopathy. Mild prostatomegaly. Images of the lung bases show no evidence of pleural or parenchymal mass. There are no pleural effusions. The bony structures are free of lytic or blastic lesions. Mild diffuse spondylosis. IMPRESSION: Cholecystectomy. Mild prostatomegaly. Mild diffuse thickening of the wall of the bladder. No evidence of acute abdominal or pelvic pathology. Time: 0702 --Patient presents with gross hematuria. Labs reviewed: (+) elevated blood glucose, otherwise, no significant clinical abnormality. Patient has known Hx of hyperglycemia. UA reviewed: (+) large amount of blood without signs of infection. Upon re-evaluation, patient is medically stable and requires no further treatment in the ED at this time. Patient will be discharged home and advised to follow up with PCP and urologist. Counseling was provided and all questions were answered regarding diagnosis. There is agreement to discharge plan. Return if symptoms persist or worsen. Clinical Impression: Hematuria Scribe Attestation: Documented by Shona Sheehan and Mariella Bellamy, acting as scribes for Calli Dowd MD. Provider Scribe Attestation: All medical record entries made by the Scribe were at my direction and personally dictated by me. I have reviewed the chart and agree that the record accurately reflects my personal performance of the history, physical exam, medical decision making, and the department course for this patient. I have also personally directed, reviewed, and agree with the discharge instructions and di sposition. Disposition - Clinical Impression Clinical Impression: Hematuria - Patient ED Disposition Is Patient to be Admitted: No Counseled Patient/Family Regarding: Studies Performed, Diagnosis, Need For Followup - Disposition Referrals: Simba Amaya MD [Non-Staff] - Disposition: Routine/Home Disposition Time: 07:02 Condition: STABLE Additional Instructions: Follow up with Dr. Enriquez and Dr. Amaya as soon as possible for further workup. No indications of kidney damage or infection at this time. Return to the emergency department if you develop worsened symptoms or if new symptoms develop. Instructions: Blood in the Urine (Hematuria), Adult (DC) Forms: [facility] (Belarusian) Print Language: GERMAN
[2018-02-20] MEDS ORDERED: Sodium Chloride 0.9% 50 ML IV ONE (06:19)
[2018-02-20] MEDS ORDERED: Iohexol 300 100 ML IJ ONE (06:19)
[2018-02-20 07:18] VITALS: BP 128/78; PULSE 79; TEMP 98.3
--- NOTE | 2018-02-20 08:46 | CT ---
Date of service: 02/20/2018 PROCEDURE: CT Abdomen and Pelvis with contrast HISTORY: blood in the urine with abd discomfort COMPARISON: 10/04/2017 TECHNIQUE: Contrast dose: 90 mL Omnipaque 300 Radiation dose: Total exam DLP = 269.09 mGy-cm. This CT exam was performed using one or more of the following dose reduction techniques: Automated exposure control, adjustment of the mA and/or kV according to patient size, and/or use of iterative reconstruction technique. FINDINGS: LOWER THORAX: Unremarkable. LIVER: Unremarkable. No gross lesion or ductal dilatation. GALLBLADDER AND BILE DUCTS: Status post cholecystectomy PANCREAS: Unremarkable. No gross lesion or ductal dilatation. SPLEEN: Unremarkable. ADRENALS: Unremarkable. No mass. KIDNEYS AND URETERS: Unremarkable. No hydronephrosis. No solid mass. VASCULATURE: Unremarkable. No aortic aneurysm. There is minimal atherosclerotic calcification of the abdominal aorta. BOWEL: Sigmoid diverticulosis. No evidence of diverticulitis. No mural thickening. No bowel obstruction. APPENDIX: Normal appendix. PERITONEUM: Unremarkable. No free fluid. No free air. LYMPH NODES: Unremarkable. No enlarged lymph nodes. BLADDER: Poorly distended. Mild thickening of the bladder wall diffusely may be artifact due to inadequate distention. Nevertheless, correlate with urinalysis for possible cystitis. REPRODUCTIVE: Minimal prostate enlargement. BONES: No acute fracture. OTHER FINDINGS: None. IMPRESSION: Mild thickening of the bladder wall. This may be artifact due to inadequate distention. Nevertheless, correlate with urinalysis for possible cystitis. Sigmoid diverticulosis without evidence of diverticulitis. Status post cholecystectomy. The preliminary findings for this examination were reported by [facility] at 6:59 a.m. on 02/20/2018. There is concurrence of this report with the preliminary findings.
== END 2018-02-20 07:15 | disposition home or self-care (01) ==
LOC: H.ER 04:42
DX: R31.9 Hematuria, unspecified (principal); E11.65 Type 2 diabetes mellitus with hyperglycemia; E78.00 Pure hypercholesterolemia, unspecified; I10 Essential (primary) hypertension; I25.10 Atherosclerotic heart disease of native coronary artery without angina pectoris; Z79.4 Long term (current) use of insulin; Z95.1 Presence of aortocoronary bypass graft
CPT/HCPCS: 74177; 80048; 81003; 85025; 99283; Q9967

== ENCOUNTER 2018-03-20 09:41 | Day surgery (SDC) | payer MEDICARE ==
[2018-03-20] MEDS ORDERED: Lactated Ringer's 500 ML IV ONE (09:50)
[2018-03-20] MEDS ORDERED: Propofol 10 mg/ml Inj (20 ML) ONE (10:21)
[2018-03-20 10:59] VITALS: TEMP 97
[2018-03-20 11:55] VITALS: BP 111/61; PULSE 64; RESP 16; O2SAT 99
== END 2018-03-20 12:06 | disposition home or self-care (01) ==
LOC: H.ENDO 09:41
PROVIDERS: ATTEND Internal Medicine Gastroenterology
DX: K63.89 Other specified diseases of intestine (principal); K64.0 First degree hemorrhoids; R19.5 Other fecal abnormalities; R19.4 Change in bowel habit; I25.10 Atherosclerotic heart disease of native coronary artery without angina pectoris; G47.33 Obstructive sleep apnea (adult) (pediatric); E78.5 Hyperlipidemia, unspecified; E11.9 Type 2 diabetes mellitus without complications; I10 Essential (primary) hypertension
CPT/HCPCS: 45380; 82948; 88305; J2704; J7120

== ENCOUNTER 2018-06-18 11:18 | Emergency (ER) | payer MEDICARE ==
[2018-06-18 11:27] VITALS: RESP 18; TEMP 97; BMI 23.4
--- NOTE | 2018-06-18 12:04 | ED PDOC ---
HPI: Abdomen Time Seen by Provider: 06/18/18 11:35 Chief Complaint (Nursing): Abdominal Pain Chief Complaint (Provider): Abdominal Pain History Per: Patient History/Exam Limitations: no limitations Onset/Duration Of Symptoms: Days Current Symptoms Are (Timing): Still Present Associated Symptoms: Urinary Symptoms. denies: Nausea, Vomiting, Diarrhea Additional Complaint(s): 57 year old male with a past medical history of CAD, diabetes, hypertension, and hypercholesterolemia who is presenting to the ED for evaluation of left sided abdominal pain ongoing for 1 day. Patient states that pain started around 8 pm last night and is associated with occasional sharp worsening pain. He reports that he noted blood in urine last night but denies any today. Patient admits that he has had urinary frequency but denies any similar episodes in the past. He also denies any past history of kidney stones and also denies any nausea vomiting, chest pain, or shortness of breath. PMD: Vinny Mitchell Past Medical History Reviewed: Historical Data, Nursing Documentation, Vital Signs Vital Signs: Last Vital Signs Temp 97 F L 06/18/18 11:26 Pulse 84 06/18/18 11:26 Resp 18 06/18/18 11:26 BP 186/105 H 06/18/18 11:26 Pulse Ox 95 06/18/18 11:26 - Medical History PMH: CAD, Depression, Diabetes, Gall Bladder Disease (CHOLECYSTECTOM Y 2013), HTN, Hypercholesterolemia, Sleep Apnea Denies: Chronic Kidney Disease - Surgical History Surgical History: CABG, Cholecystectomy, Endoscopy - Family History Family History: States: Unknown Family Hx - Social History Current smoker - smoking cessation education provided: No Alcohol: None Drugs: Denies - Home Medications Home Medications: Ambulatory Orders Medication Instructions Recorded Lisinopril [Zestril] 20 mg PO DAILY 09/10/16 Metoprolol Succinate XL [Toprol XL] 25 mg PO DAILY 09/10/16 Rivastigmine 4.6 mg/24 hr [Exelon 1 patch TD DAILY 09/10/16 4.6 mg/24 hr Patch] Insulin Detemir [Levemir] 20 units SC HS vial 10/11/17 MetFORMIN [glucoPHAGE] 1,000 mg PO BIDWM tab 10/11/17 Aspirin [Aspirin Chewable] 81 mg PO DAILY 03/20/18 Gabapentin [Neurontin] 400 mg PO DAILY 03/20/18 Loratadine [Claritin] 10 mg PO DAILY 03/20/18 Ropinirole HCl [Requip] 0.5 mg PO DAILY 03/20/18 Simvastatin [Zocor] 80 mg PO DAILY 03/20/18 Acetaminophen [8 Hour Pain Relief] 650 mg PO Q8 PRN #20 tablet.er 06/18/18 Cephalexin [cephalexin] 500 mg PO QID 10 Days #40 cap 06/18/18 - Allergies Allergies/Adverse Reactions: Allergies Allergy/AdvReac Type Severity Reaction Status Date / Time No Known Allergies Allergy Verified 06/18/18 11:27 Review of Systems ROS Statement: Except As Marked, All Systems Reviewed And Found Negative Cardiovascular: Negative for: Chest Pain Respiratory: Negative for: Shortness of Breath Gastrointestinal: Positive for: Abdominal Pain. Negative for: Nausea, Vomiting Genitourinary Male: Positive for: Frequency, Hematuria Physical Exam - Reviewed Nursing Documentation Reviewed: Yes Vital Signs Reviewed: Yes - Physical Exam Comments: GENERAL APPEARANCE: Patient is awake, alert, oriented x 3, in no acute distress. SKIN: Warm, dry; (-) cyanosis HEAD: (-) scalp swelling, (-) scalp tenderness. EYES: (-) conjunctival pallor, (-) scleral icterus, (-) nystagmus. ENMT: Mucous membranes moist. Airway patent: (-) stridor. NECK: (-) tenderness, (-) stiffness, (-) lymphadenopathy. HEART AND CARDIOVASCULAR: (-) irregularity; (-) murmur, (-) gallop. CHEST AND RESPIRATORY: (+) Chest Wall: Linear scar from valve repairs, (-) rales, (-) rhonchi, (-) wheezes; breath sounds equal. BACK: (+) Moderate left CVA tenderness ABDOMEN: Soft, (+) Normal Bowel sounds, (+) Diffuse tenderness to left side, (-) organomegaly, (-) mass, (-) distention, (-) tenderness, (-) guarding. (+) well healed scar from cholecystectomy NEURO AND PSYCH: Mental status as above. 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 Pupils equal and reactive; EOMI; (-) facial asymmetry; tongue and uvula midline. Strength and DTRs symmetric. - Laboratory Results Result Diagrams: 06/18/18 12:15 04/17/19 12:15 - ECG O2 Sat by Pulse Oximetry: 95 (RA) Medical Decision Making Medical Decision Making: Time: 11:43 Impression: Kidney stone vs. Kidney Infection Plan: --CT Abd/Pelvis --CMP --CBC --Toradol 30 mg IVP --Urine Culture --Urinalysis Patient has elevated blood pressure and does admit that he did not take his medications this morning. 12:50 pt's BS 460, pt reports he took 10units insulin around 8am and has not eaten anything today, discussed with Dr alanis, will give insulin 6units sc and IVF pt also reports that the hematuria has been an intermittent issue for 6+ months, he is followed by urologist, Dr. murillo, who did tests and said it could be related to his blood sugar. Pt reports he notices blood when he drinks juice or soda, then it goes away when he drinks water. he notes he drank soda 2 days ago. 13:15 PROCEDURE: CT Abdomen and Pelvis without Oral or IV contrast. HISTORY: r/o kidney stone COMPARISON: CT abdomen and pelvis with IV contrast performed 02/20/18 TECHNIQUE: Contiguous axial images of the abdomen and pelvis. No oral or IV contrast admini stered. Coronal and Sagittal reformats generated and reviewed. Radiation dose: Total exam DLP = 359.41 mGy-cm. This CT exam was performed using one or more of the following dose reduction techniques: Automated exposure control, adjustment of the mA and/or kV according to patient size, and/or use of iterative reconstruction technique. FINDINGS: There is limited evaluation of the solid organs without the administration of IV contrast. LOWER THORAX: No visible consolidation, pleural effusion, or pneumothorax. Small hiatal hernia/distal esophageal wall thickening. LIVER: Unremarkable unenhanced appearance. GALLBLADDER AND BILE DUCTS: Cholecystectomy. PANCREAS: Unremarkable unenhanced appearance. SPLEEN: Unremarkable unenhanced appearance. ADRENALS: Unremarkable unenhanced appearance. KIDNEYS AND URETERS: Left-sided hydroureteronephrosis without obstructing calculus identified. Moderate left-sided perinephric and periureteral stranding and fluid. No right-sided hydronephrosis or obstructing calculus identified. BLADDER: Mild wall thickening of the under distended urinary bladder. REPRODUCTIVE: The prostate gland measures approximately 3.4 x 5.2 cm. APPENDIX: The appendix appears within normal limits of caliber. No secondary signs of acute appendicitis. BOWEL: The stomach is nondistended. Lack of oral contrast limits evaluation for bowel pathology. The bowel loops appear within normal limits of caliber without evidence of intestinal obstruction. PERITONEUM: No significant free fluid. No definite free air. LYMPH NODES: No bulky lymphadenopathy identified. VASCULATURE: Atherosclerotic calcifications of the aorta. No aortic aneurysm. BONES: Degenerative changes of the spine. OTHER FINDINGS: None. IMPRESSION: Left-sided hydroureteronephrosis without obstructing calculus identified. Moderate left-sided perinephric and periureteral stranding and fluid. Correlate clinically for possibility of passed calculus. Infection is not excluded. Mild wall thickening of the under distended urinary bladder. Correlate clinically. Cholecystectomy. Small hiatal hernia/distal esophageal wall thickening. 1440 large blood in urine, possible passed stone vs infection, will cover with antibiotics on re eval, pt reports improved pain, abdomen is soft and non tender will re check glucose 15:50 pt's BS has gone down, pain improved, but now starting to come back, will treat with Tylenol PO, pt with very mild left sided abdominal tenderness, pt has a urologist, stable for dc with outpt follow up, will start on Keflex PO Discussed results, diagnosis, treatment, return precautions and f/u with pt who is understanding, in agreement and stable for dc Scribe Attestation: Documented by Liat Chris, acting as a scribe for Mehran Antony. Provider Scribe Attestation: All medical record entries made by the Scribe were at my direction and personally dictated by me. I have reviewed the chart and agree that the record accurately reflects my personal performance of the history, physical exam, medical decision making, and the department course for this patient. I have also personally directed, reviewed, and agree with the discharge instructions and disposition. Disposition - Clinical Impression Clinical Impression: Hydronephrosis, Hydroureter, Hematuria, Hyperglycemia - Patient ED Disposition Is Patient to be Admitted: No Counseled Patient/Family Regarding: Studies Performed, Diagnosis, Need For Followup, Rx Given - Disposition Referrals: Vinny Mitchell MD [Staff Provider] - Simba Amaya MD [Non-Staff] - Disposition: Routine/Home Disposition Time: 15:53 Condition: STABLE Additional Instructions: Take antibiotics as prescribed until finished. Follow up with you urologist as soon as possible. Thank you for letting us take care of you today. The emergency medical care you received today was directed at your acute symptoms. If you were prescribed any medication, please fill it and take as directed. It may take several days for your symptoms to resolve. Return to the Emergency Department if your symptoms worsen, do not improve, or if you have any other problems. Please contact your doctor in 2 days for re-evaluation and follow up / or call one of the physicians/clinics you have been referred to that are listed on the Patient Visit Information form that is included in your discharge packet. Bring any paperwork you were given at discharge with you along with any medications you are taking to your follow up visit. Our treatment cannot replace ongoing medical care by a primary care provider (PCP) outside of the emergency department. Prescriptions: Acetaminophen [8 Hour Pain Relief] 650 mg PO Q8 PRN #20 tablet.er PRN Reason: Pain, Moderate (4-7) Cephalexin [cephalexin] 500 mg PO QID 10 Days #40 cap Instructions: Hydronephrosis in Adults, Blood in the Urine (Hematuria) in Adults, Hyperglycemia, Adult (DC), Blood Glucose Monitoring Forms: [employer] (Greenlandic) Print Language: SCOTTISH - POA Present On Arrival: None Results - Diagnostic Imaging Results Radiology Results Abdomen/Pelvis CT 06/18/18 11:43 IMPRESSION: Left-sided hydroureteronephrosis without obstructing calculus identified. Moderate left-sided perinephric and periureteral stranding and fluid. Correlate clinically for possibility of passed calculus. Infection is not excluded. Mild wall thickening of the under distended urinary bladder. Correlate clinically. Cholecystectomy. Small hiatal hernia/distal esophageal wall thickening. - Lab Results Lab Results: 06/18/18 06/18/18 06/18/18 15:47 13:23 12:15 WBC RBC Hgb Hct MCV MCH MCHC RDW Plt Count MPV Neut % (Auto) Lymph % (Auto) [place] % (Auto) Eos % (Auto) Baso % (Auto) Neut # (Auto) Lymph # (Auto) [place] # (Auto) Eos # (Auto) Baso # (Auto) Sodium 131 L Potassium 4.4 Chloride 96 L Carbon Dioxide 24 Anion Gap 15 BUN 16 Creatinine 1.1 Est GFR ( Amer) > 60 Est GFR (Non-Af Amer) > 60 POC Glucose (mg/dL) 297 H Random Glucose 460 H* D Calcium 9.8 Total Bilirubin 0.5 AST 16 L D ALT 27 Alkaline Phosphatase 163 H D Total Protein 7.5 Albumin 4.4 Globulin 3.1 Albumin/Globulin Ratio 1.4 Urine Color Straw Urine Clarity Clear Urine pH 6.0 Ur Specific [place] 1.038 H Urine Protein 30 Urine Glucose (UA) >=500 Urine Ketones Negative Urine Blood Large Urine Nitrate Negative Urine Bilirubin Negative Urine Urobilinogen 0.2-1.0 Ur Leukocyte Esterase Neg Urine RBC (Auto) 1 Urine Microscopic WBC 1 06/18/18 12:15 WBC 9.0 RBC 5.15 Hgb 14.8 Hct 43.9 MCV 85.2 MCH 28.7 MCHC 33.6 RDW 13.9 Plt Count 185 MPV 10.7 Neut % (Auto) 75.7 H Lymph % (Auto) 16.1 L [place] % (Auto) 6.5 Eos % (Auto) 1.3 Baso % (Auto) 0.4 Neut # (Auto) 6.8 Lymph # (Auto) 1.4 [place] # (Auto) 0.6 Eos # (Auto) 0.1 Baso # (Auto) 0.0 Sodium Potassium Chloride Carbon Dioxide Anion Gap BUN Creatinine Est GFR ( Amer) Est GFR (Non-Af Amer) POC Glucose (mg/dL) Random Glucose Calcium Total Bilirubin AST ALT Alkaline Phosphatase Total Protein Albumin Globulin Albumin/Globulin Ratio Urine Color Urine Clarity Urine pH Ur Specific [place] Urine Protein Urine Glucose (UA) Urine Ketones Urine Blood Urine Nitrate Urine Bilirubin Urine Urobilinogen Ur Leukocyte Esterase Urine RBC (Auto) Urine Microscopic WBC
[2018-06-18 12:28] LABS: BASO % 0.4 % (0.0-2.0); EOS # 0.1 K/uL (0.0-0.7); EOS % 1.3 % (0.0-4.0); HEMOGLOBIN 14.8 g/dL (12.0-18.0); LYMPH # 1.4 K/uL (1.0-4.3); LYMPH % 16.1 % (20.0-40.0); MEAN CELL VOLUME 85.2 fl (80.0-94.0); MEAN CORPUSCULAR HEMOGLOBIN 28.7 pg (27.0-31.0); MEAN CORPUSCULAR HGB CONC 33.6 g/dL (33.0-37.0); MEAN PLATELET VOLUME 10.7 fl (7.2-11.7); MONO # 0.6 K/uL (0.0-0.8); MONO % 6.5 % (0.0-10.0); NEUT # 6.8 K/uL (1.8-7.0); NEUT % 75.7 % (50.0-75.0); NRBC % 0.1 % (0.0-0.0); RBC 5.15 Mil/uL (4.40-5.90); RED CELL DISTRIBUTION WIDTH 13.9 % (11.5-14.5)
[2018-06-18 12:40] LABS: ALB/GLOB RATIO 1.4 (1.0-2.1); ALBUMIN 4.4 g/dL (3.5-5.0); ALT/SGPT 27 U/L (21-72); AST/SGOT 16 U/L (17-59); BLOOD UREA NITROGEN 16 mg/dl (9-20); CALCIUM 9.8 mg/dL (8.4-10.2); GFR NON-AFRICAN AMERICAN > 60
[2018-06-18] MEDS ORDERED: Insulin Detemir 100 Units/ml Inj SC STA (13:03)
--- NOTE | 2018-06-18 13:14 | CT ---
PROCEDURE: CT Abdomen and Pelvis without Oral or IV contrast. HISTORY: r/o kidney stone COMPARISON: CT abdomen and pelvis with IV contrast performed 02/20/18 TECHNIQUE: Contiguous axial images of the abdomen and pelvis. No oral or IV contrast administered. Coronal and Sagittal reformats generated and reviewed. Radiation dose: Total exam DLP = 359.41 mGy-cm. This CT exam was performed using one or more of the following dose reduction techniques: Automated exposure control, adjustment of the mA and/or kV according to patient size, and/or use of iterative reconstruction technique. FINDINGS: There is limited evaluation of the solid organs without the administration of IV contrast. LOWER THORAX: No visible consolidation, pleural effusion, or pneumothorax. Small hiatal hernia/distal esophageal wall thickening. LIVER: Unremarkable unenhanced appearance. GALLBLADDER AND BILE DUCTS: Cholecystectomy. PANCREAS: Unremarkable unenhanced appearance. SPLEEN: Unremarkable unenhanced appearance. ADRENALS: Unremarkable unenhanced appearance. KIDNEYS AND URETERS: Left-sided hydroureteronephrosis without obstructing calculus identified. Moderate left-sided perinephric and periureteral stranding and fluid. No right-sided hydronephrosis or obstructing calculus identified. BLADDER: Mild wall thickening of the under distended urinary bladder. REPRODUCTIVE: The prostate gland measures approximately 3.4 x 5.2 cm. APPENDIX: The appendix appears within normal limits of caliber. No secondary signs of acute appendicitis. BOWEL: The stomach is nondistended. Lack of oral contrast limits evaluation for bowel pathology. The bowel loops appear within normal limits of caliber without evidence of intestinal obstruction. PERITONEUM: No significant free fluid. No definite free air. LYMPH NODES: No bulky lymphadenopathy identified. VASCULATURE: Atherosclerotic calcifications of the aorta. No aortic aneurysm. BONES: Degenerative changes of the spine. OTHER FINDINGS: None. IMPRESSION: Left-sided hydroureteronephrosis without obstructing calculus identified. Moderate left-sided perinephric and periureteral stranding and fluid. Correlate clinically for possibility of passed calculus. Infection is not excluded. Mild wall thickening of the under distended urinary bladder. Correlate clinically. Cholecystectomy. Small hiatal hernia/distal esophageal wall thickening.
[2018-06-18] MEDS: Sodium Chloride 0.9% 1,000 ML IV SCH ×2 (13:33→14:25)
[2018-06-18 13:48] LABS: URINE BILIRUBIN NEGATIVE (NEGATIVE); URINE BLOOD LARGE (NEGATIVE); URINE CLARITY CLEAR (Clear); URINE COLOR STRAW (YELLOW); URINE GLUCOSE (UA) >=500 mg/dL (NEGATIVE); URINE LEUKOCYTE ESTERASE NEG Leu/uL (Negative); URINE PROTEIN 30 mg/dL (NEGATIVE); URINE UROBILINOGEN 0.2-1.0 mg/dL (0.2-1.0)
[2018-06-18 16:24] VITALS: BP 142/88; PULSE 75
[2018-06-18 18:07] VITALS: O2SAT 95
== END 2018-06-18 15:53 | disposition home or self-care (01) ==
LOC: H.ER 11:18
DX: N13.30 Unspecified hydronephrosis (principal); N13.4 Hydroureter; R31.9 Hematuria, unspecified; E78.00 Pure hypercholesterolemia, unspecified; I10 Essential (primary) hypertension; K44.9 Diaphragmatic hernia without obstruction or gangrene; Z79.4 Long term (current) use of insulin
CPT/HCPCS: 74176; 80053; 81003; 82948; 85025; 87086; 96361; 96374; 99284; J1885; J7030